=== PATIENT | male | born 1990 | race African-American/Black ===

== ENCOUNTER 2018-08-01 12:44 | Emergency (ER) | payer MEDICAID, OTHER ==
[~2018-08-01] VITALS: Ht 167.6 cm; Wt 66.7 kg
[2018-08-01 13:13] VITALS: BP 127/77
[2018-08-01] MEDS ORDERED: PANTOPRAZOLE 40 MG TAB PO ONE (13:15)
[2018-08-01 13:32] LABS: Basophils # (auto) 0 uL; Eosinophils # (auto) 0.1 uL; Hematocrit 51.4 % (41.0-53.0); Hemoglobin 17.7 g/dL (13.5-17.5); Mean Corpuscular Hemoglobin 30.2 pg (28.0-32.0); Nucleated Red Blood Cells % 0.2 %; Red Cell Distribution Width 13.5 % (11.8-14.3); White Blood Cell 3.6 10^3/uL (4.4-10.8)
[2018-08-01 13:34] LABS: Eosinophils % (auto) 2.6 % (0.0-7.0); Lymphocytes # (auto) 1.7 uL; Lymphocytes % (auto) 45.8 % (10.0-50.0); Mean Corpuscular Hgb Conc. 34.5 g/dL (32.0-36.0); Mean Corpuscular Volume 87.5 fL (80.0-100.0); Monocytes # (auto) 0.5 uL; Monocytes % (auto) 13.2 % (0.0-12.0); Neutrophils # (auto) 1.4 uL; Neutrophils % (auto) 37.4 % (37.0-80.0); Platelet Count (auto) 275 10^3/uL (140-450); Red Blood Cells 5.88 10^6/uL (4.5-5.90)
[2018-08-01 13:53] LABS: Albumin 4.1 g/dL (3.4-5.0); Calcium 9.1 mg/dL (8.5-10.1); Potassium 3.9 mmol/L (3.5-5.1)
[2018-08-01 13:55] LABS: BUN/Creatinine Ratio 6.1; Bilirubin, Total 1.1 mg/dL (0.2-1.0); Total Protein 8.6 g/dL (6.4-8.2)
[2018-08-01 15:18] LABS: Urine Bacteria NONE SEEN /hpf (None Seen); Urine Blood Negative /uL (Negative); Urine Specific Gravity 1.002 (1.001-1.035); Urine WBC 1 /hpf (0 - 3)
== END 2018-08-01 16:50 | disposition home or self-care (01) ==
LOC: ER 12:46
DX: K29.70 Gastritis, unspecified, without bleeding (principal); Z87.11 Personal history of peptic ulcer disease
CPT/HCPCS: 36415; 74176; 80053; 81001; 82150; 83690; 85025

== ENCOUNTER 2018-08-26 11:41 | Emergency (ER) | payer MEDICAID ==
[~2018-08-26] VITALS: Ht 167.6 cm; Wt 68.0 kg
[2018-08-26 12:59] VITALS: BP 124/90
== END 2018-08-26 13:22 | disposition home or self-care (01) ==
LOC: ER 11:43
DX: K25.9 Gastric ulcer, unspecified as acute or chronic, without hemorrhage or perforation (principal); Z76.0 Encounter for issue of repeat prescription

== ENCOUNTER 2023-05-04 12:53 | Emergency (ER) | payer SELFPAY ==
[~2023-05-04] VITALS: Ht 170.2 cm; Wt 65.7 kg
[2023-05-04 13:21] VITALS: BP 154/90; PULSE 89; RESP 18; TEMP 97.9; O2SAT 100
[2023-05-04] MEDS ORDERED: DexAMETHasone SOD PHOS 10MG/1ML VIAL INJ PO ONE (13:30)
[2023-05-04] MEDS ORDERED: cefTRIAXone SOD 1,000 MG VL IM ONE (13:30)
[2023-05-04] MEDS ORDERED: CEPH500T PO (13:33)
[2023-05-04] MEDS ORDERED: NABU-72 PO (13:33)
[2023-05-04] MEDS ORDERED: HYDR-4924 PO (13:33)
== END 2023-05-04 13:46 | disposition home or self-care (01) ==
LOC: ER 12:53
DX: S90.562A Insect bite (nonvenomous), left ankle, initial encounter (principal); L03.116 Cellulitis of left lower limb; Z79.899 Other long term (current) drug therapy; W57.XXXA Bitten or stung by nonvenomous insect and other nonvenomous arthropods, initial encounter; Y93.89 Activity, other specified; Y92.89 Other specified places as the place of occurrence of the external cause; Y99.8 Other external cause status
CPT/HCPCS: 96372; 99283; J0696; J1100

== ENCOUNTER 2023-07-08 17:07 | Emergency (ER) | payer MEDICAID ==
[~2023-07-08] VITALS: Ht 167.6 cm; Wt 62.6 kg
[~2023-07-08 17:07] MED LIST: CEPH500T PO; HYDR-4924 PO; NABU-72 PO
[2023-07-08 17:11] VITALS: BP 136/111; PULSE 121; RESP 18; O2SAT 95
[2023-07-08 18:25] LABS: Basophils # (auto) 0.1 10 ^3/uL (0-0.2); Basophils % (auto) 0.4 % (0.0-2.0); Eosinophils # (auto) 0.1 10 ^3/uL (0-0.8); Eosinophils % (auto) 0.4 % (0.0-7.0); Hematocrit 47.7 % (41.0-53.0); Hemoglobin 15.8 g/dL (13.5-17.5); Lymphocytes # (auto) 1.7 10 ^3/uL (0.4-5.4); Lymphocytes % (auto) 12.3 % (10.0-50.0); Mean Corpuscular Hemoglobin 29.5 pg (28.0-32.0); Mean Corpuscular Volume 89.2 fL (80.0-100.0); Monocytes # (auto) 1.3 10 ^3/uL (0-1.3); Monocytes % (auto) 9.9 % (0.0-12.0); Neutrophils # (auto) 10.5 10 ^3/uL (1.6-8.6); Nucleated Red Blood Cells % 0.4 %; Red Blood Cells 5.35 10^6/uL (4.5-5.90); Red Cell Distribution Width 13.9 % (11.8-14.3); White Blood Cell 13.6 10^3/uL (4.4-10.8)
[2023-07-08 18:38] LABS: Chloride 104 mmol/L (98-107); Potassium 4.4 mmol/L (3.5-5.1); Sodium 134 mmol/L (136-145)
[2023-07-08 18:39] LABS: Anion Gap 5 (5-15); Calcium 8.6 mg/dL (8.5-10.1); Carbon Dioxide 25 mmol/L (20-30)
[2023-07-08 18:44] LABS: BUN/Creatinine Ratio 6.8 (10.0-20.0); Blood Urea Nitrogen 12 mg/dL (9-23); Glucose 89 mg/dL (74-106)
[2023-07-08 19:30] LABS: Urine Bacteria FEW /hpf (None Seen); Urine Blood 1+ /uL (Negative); Urine Clarity HAZY (Clear); Urine Color Yellow (Yellow); Urine Mucus FEW (None Seen); Urine Protein, UAD 3+ (Negative); Urine Specific Gravity 1.023 (1.001-1.035); Urine Sperm PRESENT /hpf (None Seen); Urine WBC 614 /hpf (0 - 3); Urine pH 6.5 (5.0-8.0)
[2023-07-08] MEDS ORDERED: IBUP-1455 PO (20:00)
[2023-07-08] MEDS ORDERED: BACDST PO (20:00)
== END 2023-07-09 00:23 | disposition home or self-care (01) ==
LOC: ER 17:07
DX: N43.3 Hydrocele, unspecified (principal); Z79.899 Other long term (current) drug therapy
CPT/HCPCS: 36415; 76870; 80048; 81001; 85025

== ENCOUNTER 2023-08-04 20:30 | Inpatient (IN) | payer MEDICAID ==
[~2023-08-04] VITALS: Ht 167.6 cm; Wt 68.0 kg
[~2023-08-04 20:30] MED LIST changes: +BACDST PO; +IBUP-1455 PO
[2023-08-04 21:13] LABS: Basophils # (auto) 0 10 ^3/uL (0-0.2); Basophils % (auto) 0.6 % (0.0-2.0); Eosinophils # (auto) 0.1 10 ^3/uL (0-0.8); Eosinophils % (auto) 1.4 % (0.0-7.0); Hematocrit 50.6 % (41.0-53.0); Hemoglobin 16.9 g/dL (13.5-17.5); Lymphocytes % (auto) 31.3 % (10.0-50.0); Mean Corpuscular Hemoglobin 29.3 pg (28.0-32.0); Mean Corpuscular Hgb Conc. 33.4 g/dL (32.0-36.0); Mean Corpuscular Volume 87.9 fL (80.0-100.0); Monocytes # (auto) 0.5 10 ^3/uL (0-1.3); Monocytes % (auto) 7.1 % (0.0-12.0); Neutrophils # (auto) 3.8 10 ^3/uL (1.6-8.6); Neutrophils % (auto) 59.6 % (37.0-80.0); Nucleated Red Blood Cells % 0.3 %; Red Blood Cells 5.76 10^6/uL (4.5-5.90); Red Cell Distribution Width 14.5 % (11.8-14.3); White Blood Cell 6.4 10^3/uL (4.4-10.8)
[2023-08-04 21:30] LABS: Alanine Aminotransferase 75 U/L (7-40); Alkaline Phosphatase 101 U/L (46-116); Amylase 96 U/L (30-118); Anion Gap 7 (5-15); Aspartate Aminotransferase 59 U/L (13-40); BUN/Creatinine Ratio 7.6 (10.0-20.0); Blood Urea Nitrogen 14 mg/dL (9-23); Calcium 9.4 mg/dL (8.7-10.4); Carbon Dioxide 25 mmol/L (20-30); Chloride 107 mmol/L (98-107); Glucose 104 mg/dL (74-106); Lipase 26 U/L (12-53); Potassium 3.7 mmol/L (3.5-5.1); Sodium 139 mmol/L (136-145)
[2023-08-04 21:31] LABS: Albumin 3.8 g/dL (3.2-4.8); Bilirubin, Total 1.1 mg/dL (0.2-1.0); Total Protein 7.2 g/dL (5.7-8.2)
[2023-08-04] MEDS ORDERED: cloNIDine HCL 0.1 MG TAB PO ONE (22:15)
[2023-08-04] MEDS ORDERED: cefTRIAXone 2GM/50ML D5W 50 ML IV ONE (22:30)
[2023-08-04] MEDS: MORPHINE SULFATE 4 MG/ML SYR/VIAL IV ONE (22:48)
[2023-08-04] MEDS: ONDANSETRON HCL 4 MG/2 ML VIAL IV ONE (22:48)
[2023-08-04] MEDS: METOPROLOL TARTRATE 1MG/1ML-5ML VIAL IV ONE (22:49)
[2023-08-04] MEDS: SODIUM CHLORIDE 0.9% 1,000 ML IV ONE (22:49)
[2023-08-04] MEDS: ASPirin 325 MG TAB PO ONE (22:49)
[2023-08-04] MEDS: PANTOPRAZOLE 40 MG/10 ML VIAL INJ IV ONE (22:52)
[2023-08-04] MEDS: ALBUTEROL SULF 2.5 MG/0.5ML(0.5%) NEB SOLN NEB ONE (23:08)
[2023-08-04] MEDS: IPRATROPIUM BROM 0.5 MG/2.5ML INH SOL NEB ONE (23:08)
[2023-08-04] MEDS: IOHEXOL 350 MG/ML 100ML IJ ONE (23:20)
[2023-08-05] VITALS (7 sets, daily range): BP systolic 129–140; BP diastolic 82–100; PULSE 80–101; RESP 11–20; TEMP 97.7–98.3; O2SAT 95–100
[2023-08-05] MEDS: FUROSEMIDE 40 MG/4 ML VIAL IV ONE (00:37)
[2023-08-05] MEDS: ONDANSETRON HCL 4 MG/2 ML VIAL IV ONE (04:09)
[2023-08-05] MEDS ORDERED: diphenhdrAMINE HCL 50 MG/1 ML VL IV ONE (04:30)
[2023-08-05] MEDS ORDERED: HYDROmorphone HCL 2 MG/ML VL/or syr IV ONE (04:30)
[2023-08-05 04:51] LABS: Urine Bacteria NONE SEEN /hpf (None Seen); Urine Blood Negative /uL (Negative); Urine Clarity Clear (Clear); Urine Color Colorless (Yellow); Urine Protein, UAD 2+ (Negative); Urine Specific Gravity 1.027 (1.001-1.035); Urine Urobilinogen Normal (Negative); Urine WBC 2 /hpf (0 - 3)
[2023-08-05] MEDS ORDERED: NITROGLYCERIN 0.4 MG SL TAB SL PRN (05:00)
[2023-08-05] MEDS ORDERED: MORPHINE SULFATE INJ 2 MG/ml SYRG IV PRN (05:00)
[2023-08-05] MEDS ORDERED: ONDANSETRON HCL 4 MG/2 ML VIAL IV PRN (05:00)
[2023-08-05 05:48] LABS: Chloride 108 mmol/L (98-107); Potassium 3.8 mmol/L (3.5-5.1); Sodium 139 mmol/L (136-145)
[2023-08-05 05:49] LABS: Anion Gap 8 (5-15); Calcium 8.3 mg/dL (8.5-10.1); Carbon Dioxide 23 mmol/L (20-30)
[2023-08-05 05:54] LABS: BUN/Creatinine Ratio 7.9 (10.0-20.0); Blood Urea Nitrogen 14 mg/dL (9-23); Glucose 110 mg/dL (74-106); Triglycerides 88 mg/dL (< 150)
[2023-08-05 05:55] LABS: LDL Cholesterol 116 mg/dL (< 100)
[2023-08-05 05:56] LABS: Cholesterol 168 mg/dL (< 200); HDL Cholesterol 42 mg/dL (40-59)
[2023-08-05] MEDS: hydrALAZINE HCL 20 MG/ML VL IV SCH (06:14)
[2023-08-05] MEDS: ASPirin 81 mg TAB PO SCH (10:29)
[2023-08-05] MEDS: amLODIPine BESYLATE 5 MG TAB PO SCH (10:29)
[2023-08-05] MEDS: FUROSEMIDE 20 MG/2 ML VIAL IV SCH (10:29)
[2023-08-05 10:44] LABS: Magnesium 1.8 mg/dL (1.6-2.6)
[2023-08-05] MEDS ORDERED: hydrALAZINE HCL 20 MG/ML VL IV PRN (10:45)
[2023-08-05] MEDS ORDERED: INFLUENZA QUAD 2023-2024 0.5 ML SYRG IM ONE (12:00)
[2023-08-05 15:37] LABS: Amphetamine Screen, Urine Neg (NEGATIVE); Barbiturate Scree,Urine Neg (NEGATIVE); Benzodiazephine Screen, Urine Neg (NEGATIVE); Cocaine Screen, Urine Neg (NEGATIVE)
[2023-08-05 15:38] LABS: Cannabinoid Screen, Urine Neg (NEGATIVE); Opiate Scree,Urine Neg (NEGATIVE); Phencyclidine Screen, Urine Neg (NEGATIVE)
[2023-08-05] MEDS: FUROSEMIDE 20 MG TAB PO SCH (18:07)
[2023-08-05] MEDS: CARVEDILOL 3.125 MG TAB PO SCH (21:40)
[2023-08-06] VITALS (7 sets, daily range): BP systolic 104–143; BP diastolic 65–111; PULSE 86–100; RESP 15–18; TEMP 97.5–98.5; O2SAT 97–99
[2023-08-06] MEDS: MAALOX PLUS or MAALOX 30 ML PO ONE (01:24)
[2023-08-06] MEDS: HYDROcodone-ACET 5/325MG TAB PO PRN (01:25)
[2023-08-06 06:08] LABS: Basophils # (auto) 0.1 10 ^3/uL (0-0.2); Basophils % (auto) 0.7 % (0.0-2.0); Eosinophils # (auto) 0.1 10 ^3/uL (0-0.8); Eosinophils % (auto) 1.7 % (0.0-7.0); Hematocrit 43.5 % (41.0-53.0); Hemoglobin 14.7 g/dL (13.5-17.5); Lymphocytes # (auto) 1.1 10 ^3/uL (0.4-5.4); Lymphocytes % (auto) 14.2 % (10.0-50.0); Mean Corpuscular Hemoglobin 29.5 pg (28.0-32.0); Mean Corpuscular Hgb Conc. 33.9 g/dL (32.0-36.0); Mean Corpuscular Volume 86.9 fL (80.0-100.0); Monocytes # (auto) 0.5 10 ^3/uL (0-1.3); Neutrophils # (auto) 6.1 10 ^3/uL (1.6-8.6); Neutrophils % (auto) 77.4 % (37.0-80.0); Red Cell Distribution Width 14.7 % (11.8-14.3); White Blood Cell 7.8 10^3/uL (4.4-10.8)
[2023-08-06 06:19] LABS: Chloride 102 mmol/L (98-107); Potassium 3.3 mmol/L (3.5-5.1); Sodium 137 mmol/L (136-145)
[2023-08-06 06:20] LABS: Anion Gap 7 (5-15); Calcium 8.5 mg/dL (8.7-10.4); Carbon Dioxide 28 mmol/L (20-30)
[2023-08-06 06:25] LABS: BUN/Creatinine Ratio 12.6 (10.0-20.0); Glucose 98 mg/dL (74-106)
[2023-08-06 06:26] LABS: Magnesium 1.8 mg/dL (1.6-2.6)
[2023-08-06 06:31] LABS: Blood Urea Nitrogen 24 mg/dL (9-23)
[2023-08-06] MEDS: PANTOPRAZOLE 40 MG TAB PO SCH (09:31)
[2023-08-06] MEDS: EMPAGLIFLOZIN 10 MG TAB PO SCH (09:32)
[2023-08-06] MEDS: POTASSIUM EFFERVESENT TAB 25 MEQ PO ONE (09:45)
[2023-08-06] MEDS: MAGNESIUM OXIDE 400 MG TAB PO ONE (17:58)
[2023-08-06] MEDS: AMIODARONE HCL 200 MG TAB PO SCH (22:46)
[2023-08-07] VITALS (7 sets, daily range): BP systolic 114–142; BP diastolic 74–98; PULSE 72–89; RESP 16–18; TEMP 97.2–98.1; O2SAT 93–98
[2023-08-07 06:38] LABS: Chloride 102 mmol/L (98-107); Potassium 3.5 mmol/L (3.5-5.1); Sodium 137 mmol/L (136-145)
[2023-08-07 06:39] LABS: Anion Gap 5 (5-15); Calcium 8.6 mg/dL (8.7-10.4); Carbon Dioxide 30 mmol/L (20-30)
[2023-08-07 06:44] LABS: BUN/Creatinine Ratio 12.9 (10.0-20.0); Blood Urea Nitrogen 24 mg/dL (9-23); Glucose 95 mg/dL (74-106)
[2023-08-07] MEDS: FUROSEMIDE 20 MG TAB PO SCH (10:45)
[2023-08-07] MEDS ORDERED: POTA8TAB38 PO (10:53)
[2023-08-07] MEDS ORDERED: AMIO200T33 PO (10:53)
[2023-08-07] MEDS ORDERED: CAR3125T PO (10:53)
[2023-08-07] MEDS ORDERED: FUR20T PO (10:53)
[2023-08-07] MEDS ORDERED: ASPI-325 PO (10:53)
[2023-08-08 09:03] LABS: Hepatitis B Surface Antigen Negative (Negative)
[2023-08-08 09:24] LABS: Hepatitis C Antibody Negative (Negative)
== END 2023-08-07 17:25 | disposition home or self-care (01) | DRG 199 ==
LOC: ER 20:30 → TELE-CENTR 08-05 04:54 → TELE 08-05 04:54 → TELE-CENTR 08-05 11:40
PROVIDERS: ADMIT Nurse Practitioner; ATTEND Nurse Practitioner Acute Care
DX: I16.0 Hypertensive urgency (principal); I21.A1 Myocardial infarction type 2; I50.23 Acute on chronic systolic (congestive) heart failure; I42.0 Dilated cardiomyopathy; F12.10 Cannabis abuse, uncomplicated; K27.7 Chronic peptic ulcer, site unspecified, without hemorrhage or perforation; I47.20 Ventricular tachycardia, unspecified; E78.5 Hyperlipidemia, unspecified; K29.70 Gastritis, unspecified, without bleeding; N18.32 Chronic kidney disease, stage 3b; Z79.82 Long term (current) use of aspirin; Z90.49 Acquired absence of other specified parts of digestive tract; Z79.899 Other long term (current) drug therapy; F15.90 Other stimulant use, unspecified, uncomplicated
CPT/HCPCS: 36415; 71045; 71275; 76705; 78226; 80048; 80053; 80061; 80307; 81001; 82150; 83036; 83690; 83735; 83880; 84443; 84484; 85025; 85379; 86803; 87340; 93005; 93306; 94640; 96361; 96374; 96375; 96376; C9113; G0378; J2405

== ENCOUNTER 2024-01-08 15:23 | Inpatient (IN) | payer MEDICAID ==
[~2024-01-08] VITALS: Ht 170.2 cm; Wt 63.9 kg
[~2024-01-08 15:23] MED LIST changes: +AMIO200T33 PO; +ASPI-325 PO; +CARV-214 PO; +FUR20T PO; +POTA8TAB38 PO
[2024-01-08] MEDS: ASPirin 325 MG TAB PO ONE (16:14)
[2024-01-08 16:29] LABS: Basophils # (auto) 0.1 10 ^3/uL (0-0.2); Basophils % (auto) 0.8 % (0.0-2.0); Eosinophils # (auto) 0.5 10 ^3/uL (0-0.8); Eosinophils % (auto) 5.2 % (0.0-7.0); Hematocrit 46.3 % (41.0-53.0); Hemoglobin 16.6 g/dL (13.5-17.5); Lymphocytes # (auto) 1.3 10 ^3/uL (0.4-5.4); Lymphocytes % (auto) 12.8 % (10.0-50.0); Mean Corpuscular Hemoglobin 30.6 pg (28.0-32.0); Mean Corpuscular Hgb Conc. 35.9 g/dL (32.0-36.0); Mean Corpuscular Volume 85.2 fL (80.0-100.0); Monocytes # (auto) 0.6 10 ^3/uL (0-1.3); Monocytes % (auto) 6.2 % (0.0-12.0); Neutrophils # (auto) 7.6 10 ^3/uL (1.6-8.6); Nucleated Red Blood Cells % 0.1 %; Red Blood Cells 5.44 10^6/uL (4.5-5.90); Red Cell Distribution Width 14.1 % (11.8-14.3); White Blood Cell 10.2 10^3/uL (4.4-10.8)
[2024-01-08 16:38] LABS: Chloride 106 mmol/L (98-107); Potassium 3.6 mmol/L (3.5-5.1); Sodium 139 mmol/L (136-145)
[2024-01-08 16:39] LABS: Anion Gap 7 (5-15); Calcium 9.9 mg/dL (8.7-10.4); Carbon Dioxide 26 mmol/L (20-30)
[2024-01-08 16:44] LABS: BUN/Creatinine Ratio 13.9 (10.0-20.0); Blood Urea Nitrogen 23 mg/dL (9-23); Glucose 93 mg/dL (74-106)
[2024-01-08 17:49] LABS: Triglycerides 149 mg/dL (< 150)
[2024-01-08 17:50] LABS: LDL Cholesterol 135 mg/dL (< 100)
[2024-01-08 17:51] LABS: Cholesterol 207 mg/dL (< 200); HDL Cholesterol 50 mg/dL (40-59)
[2024-01-08] MEDS: ENOXAPARIN SOD 60 MG/0.6 ML SYRINGE SC SCH (18:51)
[2024-01-08 19:08] LABS: INR 1.02 (0.9-1.15); Prothrombin Time 10.8 sec (9.3-11.8)
[2024-01-08] MEDS: PANTOPRAZOLE 40 MG/10 ML VIAL INJ IV ONE (20:09)
[2024-01-08] MEDS: FUROSEMIDE 20 MG/2 ML VIAL IV ONE (20:10)
[2024-01-08 20:11] VITALS: PULSE 78; RESP 18; O2SAT 96
[2024-01-08] MEDS ORDERED: MORPHINE SULFATE INJ 2 MG/ml SYRG IV PRN (22:30)
[2024-01-08] MEDS ORDERED: NITROGLYCERIN 0.4 MG SL TAB SL PRN (22:30)
[2024-01-08 23:24] VITALS: BP 143/110; PULSE 84; RESP 16; TEMP 97.9; O2SAT 97
[2024-01-08] MEDS: CARVEDILOL 3.125 MG TAB PO SCH (23:29)
[2024-01-08] MEDS: ATORVASTATIN 20 MG TAB PO SCH (23:29)
[2024-01-08] MEDS: AMIODARONE HCL 200 MG TAB PO SCH (23:30)
[2024-01-09] MEDS ORDERED: ASPirin-EC 81 mg tab PO SCH (10:00)
[2024-01-09] MEDS ORDERED: PANTOPRAZOLE 40 MG/10 ML VIAL INJ IV SCH (10:00)
[2024-01-09] MEDS ORDERED: FUROSEMIDE 20 MG/2 ML VIAL IV SCH (10:00)
[2024-01-09] MEDS ORDERED: POTASSIUM CHLORIDE 8 MEQ TAB PO SCH (10:00)
[2024-01-09] MEDS ORDERED: ISOS1TAB28 PO (16:17)
[2024-01-09] MEDS ORDERED: AMIO200T33 PO (16:17)
[2024-01-09] MEDS ORDERED: EMPA1TAB PO (16:17)
[2024-01-09] MEDS ORDERED: HYDR25TA88 PO (16:17)
== END 2024-01-09 00:08 | disposition left against medical advice (07) | DRG 194 ==
LOC: ER 15:23 → TELE 22:18
PROVIDERS: ADMIT Nurse Practitioner; ATTEND Internal Medicine Geriatric Medicine
DX: I50.21 Acute systolic (congestive) heart failure (principal); E78.5 Hyperlipidemia, unspecified; N18.30 Chronic kidney disease, stage 3 unspecified; Z53.29 Procedure and treatment not carried out because of patient's decision for other reasons; Z90.49 Acquired absence of other specified parts of digestive tract; Z87.11 Personal history of peptic ulcer disease
CPT/HCPCS: 36415; 71046; 80048; 80061; 83036; 83735; 83880; 84484; 85025; 85610; 93005; 96374; 96375; G0378; J2470

== ENCOUNTER 2024-04-10 16:58 | Emergency (ER) | payer MEDICAID ==
[~2024-04-10] VITALS: Ht 170.2 cm; Wt 64.9 kg
[~2024-04-10 16:58] MED LIST changes: -BACDST PO; -CEPH500T PO; +EMPA1TAB PO; -FUR20T PO; +FURO20TA4 PO; +HYDR25TA88 PO; -IBUP-1455 PO; +ISOS1TAB28 PO; -NABU-72 PO
--- NOTE | 2024-04-10 17:21 | ED.PDOC ---
SOB-HPI HPI Comments 33 year old male presents to the ED with chief complaint of SOB. Patient reports since returning home from a recent cruise to [place], he has begun to experience SOB with associated symptoms of cough, chills, and chest pain with deep breaths. Patient relays that he is currently taking Carvedilol for recent diagnosis of HTN. Patient denies any N/V/D, fever, dizziness, or headache. Patient was hypertensive at arrival. Chief Complaint: Flu like Time Seen by MD: 17:17 Primary Care Provider: NONE Reviewed notes: Nurses Notes, Medications, Allergies Information Source: Patient Mode of Arrival: Ambulatory Severity: Moderate Timing: Days Duration: Since onset Context: At Rest PE Risk Factors: None History of: None Prehospital treatment: None Modifying Factors: Nothing Associated Signs and Symptoms: Cough, Chest Pain Quality: Pressure Radiation: No Radiation Location: Substernal If cough with SOB: Non-Productive Past Medical History PAST MEDICAL HISTORY: CHF, HTN, PUD Surgical History: Appendectomy Family History Family History: Reviewed,noncontributory to illness, Unknown Social History Smoker: Cigarettes Alcohol: Denies ETOH Use Drugs: Marijuana Lives In: Home Constitutional: reports: chills, weakness; denies: diaphoresis, fatigue, fever, malaise, sweats, others EENTM: denies: blurred vision, double vision, ear bleeding, ear discharge, ear drainage, ear pain, ear ringing, eye pain, eye redness, hearing loss, mouth pain, mouth swelling, nasal discharge, nose bleeding, nose congestion, nose pain, photophobia, tearing, throat pain, throat swelling, voice changes, others Respiratory: reports: cough, shortness of breath; denies: hemoptysis, orthopnea, SOB at rest, SOB with excertion, stridor, wheezing, others Cardiovascular: reports: chest pain; denies: dizzy spells, diaphoresis, Dyspnea on exertion, edema, irregular heart beat, left arm pain, lightheadedness, palpitations, PND, syncope, others Gastrointestinal: denies: abdomen distended, abdominal pain, blood streaked bowels, constipated, diarrhea, dysphagia, difficulty swallowing, hematemesis, melena, nausea, poor appetite, poor fluid intake, rectal bleeding, rectal pain, vomiting, others Genitourinary: denies: burning, dysuria, flank pain, frequency, hematuria, incontinence, penile discharge, penile sore, pain, testicle pain, testicle sw elling, urgency, others Neurological: denies: dizziness, fainting, headache, left sided numbness, left sided weakness, numbness, paresthesia, pre-existing deficit, right sided numbness, right sided weakness, seizure, speech problems, tingling, tremors, weakness, others Musculoskeletal: denies: back pain, gout, joint pain, joint swelling, muscle pain, muscle stiffness, neck pain, others Integumetry: denies: bruises, change in color, change in hair/nails, dryness, laceration, lesions, lumps, rash, wounds, others Allergic/Immunocompromised: denies: Difficulty Healing, Frequent Infections, Hives, Itching, others Hematologic/Lymphatic: denies: anemia, blood clots, easy bleeding, easy bruising, swollen glands, others Endocrine: denies: excessive hunger, excessive sweating, excessive thirst, excessive urination, flushing, intolerance to cold, intolerance to heat, unexplained weight gain, unexplained weight loss, others Psychiatric: denies: anxiety, bipolar disorder, depression, hopeless, panic disorder, schizophrenia, sleepless, suicidal, others All Other Systems: Reviewed and Negative Physical Exam General Appearance: Mild Distress (Patient presents as a mildly ill 33-year-old male.), Normal HEENT: Normal ENT Inspection, PERRL/EOMI Neck: Full Range of Motion, Non-Tender, Normal, Normal Inspection Respiratory: Chest Non-Tender, Lungs Clear, No Accessory Muscle Use, No Resp iratory Distress, Normal Breath Sounds, Other (Unremarkable auscultation bilateral lung simon.) Cardiovascular: No Edema, No JVD, No Murmur, No Gallop, Normal Peripheral Pulses, Regular Rate/Rhythm Breast Exam: Deferred Gastrointestinal: No Organomegaly, Non Tender, No Pulsatile Mass, Normal Bowel Sounds, Soft Genitalia: Deferred Pelvic: Deferred Rectal: Deferred Extremities: No calf tenderness, Normal capillary refill, Normal inspection, Normal range of motion, Non-tender, No pedal edema Musculoskeletal : Apperance: Normal Neurologic: Alert, chair springer II-XII nml as Tested, No Motor Deficits, Normal Affect, Normal Mood, No Sensory Deficits Cerebellar Function: Normal Reflexes: Normal Skin: Dry, Normal Color, Warm Lymphatic: No Adenopathy Was a procedure done? Was a procedure done?: No Differential Dx Differential Diagnosis: Bronchitis, Pneumonia, URI, Other (Influenza a/B, COVID-19) X-Ray, Labs, Meds, VS Vital Signs Date Time Temp Pulse Resp B/P (MAP) Pulse Ox O2 Delivery O2 Flow Rate FiO2 04/10/24 19:27 76 18 96 Room Air* 0 21 04/10/24 19:27 97.6 76 18 122/98 (106) 96 97.6 04/10/24 18:11 98.1 77 17 152/90 (110) 96 98.1 04/10/24 18:11 77 17 96 Room Air 04/10/24 18:02 16 97 Room Air* 0 21 04/10/24 17:16 98.0 75 20 176/125 (142) 97 Lab Test 04/10/24 19:27 04/10/24 18:22 Range/Units Influenza Type A Antigen Negative Negative Influenza Type B Antigen Positive Negative SARS-CoV-2 Antigen (Rapid) Negative NEGATIVE Current Medications Medications (Trade) Dose Ordered Sig/Connie Route Start Time Stop Time Status Last Admin Albuterol (Ventolin Medneb) 2.5 mg ONCE ONCE NEB 04/10/24 17:30 04/10/24 17:31 DC 04/10/24 18:02 Ipratropium Carroll (Atrovent Medneb) 0.5 mg ONCE ONCE NEB 04/10/24 17:30 04/10/24 17:31 DC 04/10/24 18:02 Dexamethasone Sodium Phosphate (Decadron Injection) 10 mg ONCE ONCE IM 04/10/24 17:30 04/10/24 17:31 DC 04/10/24 18:11 X-Ray, Labs, Meds, VS Comment All studies performed in the ED today were evaluated by me personally. Imaging studies unremarkable for any acute pulmonary process. Swabs studies were remarkable for a positive influenza B finding. Patient will be sent home with medication and advised to practice good hydration and healthy nutrition throughout illness event. Time of 1ST Reevaluation: 20:19 Reevaluation 1ST: Improved Consultation: PCP Patient Education/Counseling: Diagnosis, Treatment, Prognosis Family Education/Counseling: Diagnosis, Treatment, No Family Present Departure 1 Departure Time of Disposition: 20:19 Impression: Primary Impression: Influenza B Disposition: HOME / SELF CARE / HOMELESS Condition: Stable Additional Instructions: Advised patient utilize medication as directed as well as additional medication as needed. Patient should practice good hydration and healthy nutrition throughout illness event. e-Prescriptions Benzonatate (Benzonatate) 100 Mg Cap 1 CAP PO Q8HP PRN, #20 CAP Prov: ROSARIO AYALA PAC 04/10/24 Acetaminophen (Acetaminophen) 500 Mg Tab 500 MG PO Q4HP PRN, #30 TAB Prov: ROSARIO AYALA PAC 04/10/24 Oseltamivir Phosphate (Tamiflu) 75 Mg Cap 75 MG PO BID for 5 Days, #10 CAP Prov: ROSARIO AYALA PAC 04/10/24 Discharged With: Self, Friend Critical Care Note Critical Care Time?: No Stability Stability form required: No Heart Score Heart Score: Heart Score Response (Comments) Value History N/A 0 EKG N/A 0 Age N/A 0 Risk Factors N/A 0 Troponin N/A 0 Total 0 I personally scribed for ROSARIO AYALA PAC ([email or web address]) on 04/10/24 at 17:21. Electronically submitted by Pedro Hernandez ([email or web address]). ROSARIO AYALA PAC Apr 10, 2024 17:21
--- NOTE | 2024-04-10 17:47 | DVH ---
EXAMINATION: PA and lateral chest radiographs CLINICAL HISTORY: Shortness a breath COMPARISON: XY CHEST TWO VIEWS ROUTINE on DOS: 01/08/24 FINDINGS: No dominant consolidation. The costophrenic angles appear clear. No sizable pleural effusions or pne umothorax identified. The cardiomediastinal silhouette appears within normal limits. IMPRESSION: No acute cardiopulmonary findings.
[2024-04-10] MEDS: ALBUTEROL SULF 2.5 MG/0.5ML(0.5%) NEB SOLN NEB ONE (18:02)
[2024-04-10] MEDS: IPRATROPIUM BROM 0.5 MG/2.5ML INH SOL NEB ONE (18:02)
[2024-04-10] MEDS: DexAMETHasone SOD PHOS 10MG/1ML VIAL INJ IM ONE (18:11)
[2024-04-10 19:27] VITALS: BP 122/98; PULSE 76; RESP 18; TEMP 97.6; O2SAT 96
[2024-04-10 19:33] LABS: COVID19 ANTIGEN SOFIA FIA NEGATIVE (NEGATIVE)
[2024-04-10 20:11] LABS: Rapid Influenza A Negative (Negative)
[2024-04-10 20:12] LABS: Rapid Influenza B Positive (Negative)
[2024-04-10] MEDS ORDERED: ACET500T58 PO (20:20)
[2024-04-10] MEDS ORDERED: BENZ100C97 PO (20:20)
[2024-04-10] MEDS ORDERED: TAMIFLU PO (20:20)
== END 2024-04-10 20:58 | disposition home or self-care (01) ==
LOC: ER 16:58
DX: J10.1 Influenza due to other identified influenza virus with other respiratory manifestations (principal); I11.0 Hypertensive heart disease with heart failure; I50.9 Heart failure, unspecified; F12.10 Cannabis abuse, uncomplicated; F17.210 Nicotine dependence, cigarettes, uncomplicated; Z87.11 Personal history of peptic ulcer disease; Z90.49 Acquired absence of other specified parts of digestive tract; Z20.822 Contact with and (suspected) exposure to COVID-19
CPT/HCPCS: 36415; 71046; 87426; 87804; 94640; 96372; 99284; J1100

== ENCOUNTER 2024-05-19 22:57 | Emergency (ER) | payer MEDICAID ==
[~2024-05-19] VITALS: Ht 170.2 cm; Wt 65.3 kg
[~2024-05-19 22:57] MED LIST changes: +ACET500T58 PO; +BENZ100C97 PO; +TAMIFLU PO
[2024-05-19 23:20] VITALS: BP 185/129; PULSE 63; RESP 16; O2SAT 98
--- NOTE | 2024-05-19 23:46 | ED.PDOC ---
Eye-HPI HPI Comments 33-year-old male complaining of bleeding to his right upper molar. Patient states he went to the dentist at 10:00 a.m. today and had a tooth extracted. States since then he has been having bleeding. Soaking through the gauze. Patient denies any pain. Nothing makes it better,. Has been replacing the packing frequently. Denies any use of blood thinners. Chief Complaint: Tooth Pain Time Seen by MD: 23:10 Primary Care Provider: KISHA Reviewed Notes: Nurses Notes Allergies: Coded Allergies: NO KNOWN ALLERGIES (Unverified , 08/01/18) Home Meds Active Scripts Benzonatate (Benzonatate) 100 Mg Cap, 1 CAP PO Q8HP PRN, #20 CAP Prov:ROSARIO AYALA PAC 04/10/24 Acetaminophen (Acetaminophen) 500 Mg Tab, 500 MG PO Q4HP PRN, #30 TAB Prov:ROSARIO AYALA PAC 04/10/24 Oseltamivir Phosphate (Tamiflu) 75 Mg Cap, 75 MG PO BID for 5 Days, #10 CAP Prov:ROSARIO AYALA PAC 04/10/24 Potassium Chloride (Klor-Con 8) 8 Meq Tab, 8 MEQ PO DAILY for 60 Days, #60 TAB Prov:SALFABRICIO ESCUDERO CORDUROY BRUSHER OPERATOR 08/07/23 Aspirin (Aspirin Low Dose) 81 Mg Tab, 81 MG PO DAILY for 60 Days, #60 TAB Prov:SALNOA ESCUDEROPH CORDUROY BRUSHER OPERATOR 08/07/23 Furosemide (Furosemide) 20 Mg Tab, 20 MG PO DAILY for 60 Days, #60 TAB Prov:SALFABRICIO ESCUDERO CORDUROY BRUSHER OPERATOR 24 Carvedilol (COREG) 3.125 Mg Tab, 3.125 MG PO Q12HR for 60 Days, #120 TAB Prov:FABRICIO LLANOS CORDUROY BRUSHER OPERATOR 08/07/23 Hydroxyzine HCl (Hydroxyzine Hydrochloride) 25 Mg Tab, 25 MG PO Q6HPRN PRN, #30 TAB Prov:MCKAY CESPEDES SUBEDITOR 05/04/23 Reported Medications Amiodarone Hcl (Amiodarone Hcl) 200 Mg Tab, 200 MG PO DAILY, TAB 01/09/24 Hydralazine Hcl (Hydralazine Hcl) 25 Mg Tab, 25 MG PO BID, MG 01/09/24 Empagliflozin (Jardiance) 10 Mg Tab, 10 MG PO DAILY, TAB 01/09/24 Isosorbide Mononitrate (Isosorbide Mononitrate Er) 30 Mg Tab, 30 MG PO DAILY, TAB 01/09/24 Information Source: Patient Mode of Arrival: Ambulatory Past Medical History PAST MEDICAL HISTORY: CHF, HTN, PUD Surgical History: Appendectomy Family History Family History: Reviewed,noncontributory to illness, Unknown Social History Smoker: Cigarettes Alcohol: Denies ETOH Use Drugs: Marijuana Lives In: Home Constitutional: denies: chills, diaphoresis, fatigue, fever, malaise, sweats, weakness, others EENTM: denies: blurred vision, double vision, ear bleeding, ear discharge, ear drainage, ear pain, ear ringing, eye pain, eye redness, hearing loss, mouth pain, mouth swelling, nasal discharge, nose bleeding, nose congestion, nose pain, photophobia, tearing, throat pain, throat swelling, voice changes, others Respiratory: denies: cough, hemoptysis, orthopnea, SOB at rest, shortness of breath, SOB with excertion, stridor, wheezing, others Cardiovascular: denies: chest pain, dizzy spells, diaphoresis, Dyspnea on exertion, edema, irregular heart beat, left arm pain, lightheadedness, palpitations, PND, syncope, others Gastrointestinal: denies: abdomen distended, abdominal pain, blood streaked bowels, constipated, diarrhea, dysphagia, difficulty swallowing, hematemesis, melena, nausea, poor appetite, poor fluid intake, rectal bleeding, rectal pain, vomiting, others Genitourinary: denies: burning, dysuria, flank pain, frequency, hematuria, incontinence, penile discharge, penile sore, pain, testicle pain, testicle sw elling, urgency, others Neurological: denies: dizziness, fainting, headache, left sided numbness, left sided weakness, numbness, paresthesia, pre-existing deficit, right sided numbness, right sided weakness, seizure, speech problems, tingling, tremors, weakness, others Musculoskeletal: denies: back pain, gout, joint pain, joint swelling, muscle pain, muscle stiffness, neck pain, others Allergic/Immunocompromised: denies: Difficulty Healing, Frequent Infections, Hives, Itching, others Hematologic/Lymphatic: denies: anemia, blood clots, easy bleeding, easy bruising, swollen glands, others Physical Exam General Appearance: No Apparent Distress, Normal HEENT: Normal ENT Inspection, Pharynx Normal, TMs Normal, Other (Bleeding noted at tooth 1. ) Neck: Full Range of Motion, Non-Tender, Normal, Normal Inspection Respiratory: Chest Non-Tender, Lungs Clear, No Accessory Muscle Use, No Respiratory Distress, Normal Breath Sounds Cardiovascular: No Edema, No JVD, No Murmur, No Gallop, Normal Peripheral Pulses, Regular Rate/Rhythm Breast Exam: Deferred Gastrointestinal: No Organomegaly, Non Tender, No Pulsatile Mass, Normal Bowel Sounds, Soft Genitalia: Deferred Pelvic: Deferred Rectal: Deferred Extremities: No calf tenderness, Normal capillary refill, Normal inspection, Normal range of motion, Non-tender, No pedal edema Musculoskeletal : Apperance: Normal Neurologic: Alert, gambreler helper II-XII nml as Tested, No Motor Deficits, Normal Affect, Normal Mood, No Sensory Deficits Cerebellar Function: Normal Reflexes: Normal Skin: Dry, Normal Color, Warm Lymphatic: No Adenopathy Was a procedure done? Was a procedure done?: No EENT DIFF Eye: N/A Mouth: N/A Sore Throat: N/A X-Ray, Labs, Meds, VS Vital Signs Date Time Temp Pulse Resp B/P (MAP) Pulse Ox O2 Delivery O2 Flow Rate FiO2 05/19/24 23:20 97.2 63 16 185/129 (147) 98 X-Ray, Labs, Meds, VS Comment Tooth 1. Region was packed using Surgicel. Patient advised to keep pressure through the morning. Advised to follow up with dentist in the morning. Time of 1ST Reevaluation: 23:46 Reevaluation 1ST: Improved Patient Education/Counseling: Diagnosis, Treatment, Need For Follow Up (Follow up with the oral specialist tomorrow.) Family Education/Counseling: Diagnosis, Treatment Departure 1 Departure Time of Disposition: 23:45 Impression: Primary Impression: Hemorrhagic complications of dental implant placement Disposition: 01 HOME / SELF CARE / HOMELESS Condition: Fair Discharged With: Self Critical Care Note Critical Care Time?: No Stability Stability form required: No Heart Score Heart Score: Heart Score Response (Comments) Value History N/A 0 EKG N/A 0 Age N/A 0 Risk Factors N/A 0 Troponin N/A 0 Total 0 GENE ZIMMERMAN May 19, 2024 23:46
== END 2024-05-20 02:19 | disposition home or self-care (01) ==
LOC: ER 22:57
DX: K08.89 Other specified disorders of teeth and supporting structures (principal); I11.0 Hypertensive heart disease with heart failure; I50.9 Heart failure, unspecified; F17.210 Nicotine dependence, cigarettes, uncomplicated; Z79.82 Long term (current) use of aspirin; Z79.84 Long term (current) use of oral hypoglycemic drugs; Z79.899 Other long term (current) drug therapy; Z90.49 Acquired absence of other specified parts of digestive tract

== ENCOUNTER 2024-07-06 08:51 | Emergency (ER) | payer MEDICAID ==
[~2024-07-06] VITALS: Ht 170.2 cm; Wt 67.2 kg
--- NOTE | 2024-07-06 09:02 | ECG ---
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
--- NOTE | 2024-07-06 09:23 | DVH ---
CHEST RADIOGRAPH Indication: chest pain Technique: Frontal and lateral view of the chest was obtained Comparison: XY CHEST TWO VIEWS ROUTINE on DOS: 04/10/24, XY CHEST TWO VIEWS ROUTINE on DOS: 01/08/24 FINDINGS: Lines and Tubes: None Lungs: Clear Pleura: No effusion. No pneumothorax. Cardiomediastinal contours: Unremarkable Bones: Unremarkable IMPRESSION: No evidence of acute disease.
[2024-07-06 09:28] LABS: Basophils # (auto) 0 10 ^3/uL (0-0.2); Basophils % (auto) 0.7 % (0.0-2.0); Eosinophils # (auto) 0.3 10 ^3/uL (0-0.8); Eosinophils % (auto) 6.5 % (0.0-7.0); Hematocrit 47.6 % (41.0-53.0); Hemoglobin 16.7 g/dL (13.5-17.5); Lymphocytes # (auto) 1.6 10 ^3/uL (0.4-5.4); Lymphocytes % (auto) 37.7 % (10.0-50.0); Mean Corpuscular Hemoglobin 30.4 pg (28.0-32.0); Mean Corpuscular Hgb Conc. 35.1 g/dL (32.0-36.0); Mean Corpuscular Volume 86.8 fL (80.0-100.0); Monocytes # (auto) 0.4 10 ^3/uL (0-1.3); Monocytes % (auto) 10.4 % (0.0-12.0); Neutrophils # (auto) 1.9 10 ^3/uL (1.6-8.6); Neutrophils % (auto) 44.7 % (37.0-80.0); Nucleated Red Blood Cells % 0.4 %; Platelet Count (auto) 299 10^3/uL (140-450); Red Blood Cells 5.49 10^6/uL (4.5-5.90); Red Cell Distribution Width 13.3 % (11.8-14.3); White Blood Cell 4.2 10^3/uL (4.4-10.8)
[2024-07-06 09:41] LABS: Chloride 102 mmol/L (98-107); Potassium 3.7 mmol/L (3.5-5.1)
[2024-07-06 09:42] LABS: Anion Gap 7 (5-15); Calcium 9.2 mg/dL (8.7-10.4); Carbon Dioxide 27 mmol/L (20-31)
[2024-07-06 09:47] LABS: BUN/Creatinine Ratio 10.8 (10.0-20.0); Blood Urea Nitrogen 22 mg/dL (9-23)
[2024-07-06 09:51] LABS: Glucose 139 mg/dL (74-106); Sodium 136 mmol/L (136-145)
--- NOTE | 2024-07-06 11:32 | ED.PDOC ---
History of Present Illness HPI Comments 34M with congestive heart failure and hypertension presents with 1 day of worsening shortness of breath and bilateral achy 6/10 chest pain that radiates down his left arm. Patient reports this feels similar to her problems in the past. He denies any fever chills nausea vomiting or diarrhea. Chief Complaint: Chest Pain Time Seen by MD: 08:58 Primary Care Provider: KISHA Allergies: Coded Allergies: NO KNOWN ALLERGIES (Unverified , 08/01/18) Home Meds Active Scripts Benzonatate (Benzonatate) 100 Mg Cap, 1 CAP PO Q8HP PRN, #20 CAP Prov:ROSARIO AYALA PAC 04/10/24 Acetaminophen (Acetaminophen) 500 Mg Tab, 500 MG PO Q4HP PRN, #30 TAB Prov:ROSARIO AYALA PAC 04/10/24 Oseltamivir Phosphate (Tamiflu) 75 Mg Cap, 75 MG PO BID for 5 Days, #10 CAP Prov:ROSARIO AYALA PAC 04/10/24 Potassium Chloride (Klor-Con 8) 8 Meq Tab, 8 MEQ PO DAILY for 60 Days, #60 TAB Prov:FABRICIO LLANOS EDGE INKER 08/07/23 Aspirin (Aspirin Low Dose) 81 Mg Tab, 81 MG PO DAILY for 60 Days, #60 TAB Prov:SALFABRICIO ESCUDERO EDGE INKER 24 Furosemide (Furosemide) 20 Mg Tab, 20 MG PO DAILY for 60 Days, #60 TAB Prov:FABRICIO LLANOS EDGE INKER 24 Carvedilol (COREG) 3.125 Mg Tab, 3.125 MG PO Q12HR for 60 Days, #120 TAB Prov:FABRICIO LLANOS EDGE INKER 08/07/23 Hydroxyzine HCl (Hydroxyzine Hydrochloride) 25 Mg Tab, 25 MG PO Q6HPRN PRN, #30 TAB Prov:MCKAY CESPEDES FRONT END MECHANIC 05/04/23 Reported Medications Amiodarone Hcl (Amiodarone Hcl) 200 Mg Tab, 200 MG PO DAILY, TAB 01/09/24 Hydralazine Hcl (Hydralazine Hcl) 25 Mg Tab, 25 MG PO BID, MG 01/09/24 Empagliflozin (Jardiance) 10 Mg Tab, 10 MG PO DAILY, TAB 01/09/24 Isosorbide Mononitrate (Isosorbide Mononitrate Er) 30 Mg Tab, 30 MG PO DAILY, TAB 01/09/24 Information Source: Patient Mode of Arrival: Ambulatory Past Medical History PAST MEDICAL HISTORY: CHF, HTN, PUD Surgical History: Appendectomy Family History Family History: Reviewed,noncontributory to illness, Unknown Social History Smoker: Cigarettes Alcohol: Denies ETOH Use Drugs: Marijuana Lives In: Home All Other Systems: Reviewed and Negative Physical Exam General Appearance: Normal HEENT: Normal ENT Inspection Neck: Normal Inspection Respiratory: Other (Crackles bilaterally) Cardiovascular: Tachycardia Breast Exam: Deferred Gastrointestinal: No Organomegaly, Non Tender, No Pulsatile Mass, Normal Bowel Sounds, Soft Genitalia: Deferred Pelvic: Deferred Rectal: Deferred Extremities: No calf tenderness, Normal capillary refill, Normal inspection, Normal range of motion, Non-tender Neurologic: No Motor Deficits Cerebellar Function: NOT DONE Reflexes: NOT DONE Skin: Dry, Normal Color, Warm Lymphatic: NOT DONE Was a procedure done? Was a procedure done?: No Differential Dx Considerations may include: Viral syndrome, ACS, CHF exacerbation X-Ray, Labs, Meds, VS Vital Signs Date Time Temp Pulse Resp B/P (MAP) Pulse Ox O2 Delivery O2 Flow Rate FiO2 07/06/24 11:13 76 16 139/92 (108) 96 07/06/24 09:00 97.6 97 17 149/132 (138) 96 07/06/24 08:59 97 07/06/24 08:59 94 Lab Test 07/06/24 09:56 07/06/24 09:00 Range/Units Troponin I High Sensitivity 15 14 </=54 ng/L White Blood Count 4.2 L 4.4-10.8 10^3/uL Red Blood Count 5.49 4.5-5.90 10^6/uL Hemoglobin 16.7 13.5-17.5 g/dL Hematocrit 47.6 41.0-53.0 % Mean Corpuscular Volume 86.8 80.0-100.0 fL Mean Corpuscular Hemoglobin 30.4 28.0-32.0 pg Mean Corpuscular Hemoglobin Concent 35.1 32.0-36.0 g/dL Red Cell Distribution Width 13.3 11.8-14.3 % Platelet Count 299 140-450 10^3/uL Mean Platelet Volume 7.2 6.9-10.8 fL Neutrophils (%) (Auto) 44.7 37.0-80.0 % Lymphocytes (%) (Auto) 37.7 10.0-50.0 % Monocytes (%) (Auto) 10.4 0.0-12.0 % Eosinophils (%) (Auto) 6.5 0.0-7.0 % Basophils (%) (Auto) 0.7 0.0-2.0 % Neutrophils # (Auto) 1.9 1.6-8.6 10 ^3/uL Lymphocytes # (Auto) 1.6 0.4-5.4 10 ^3/uL Monocytes # (Auto) 0.4 0-1.3 10 ^3/uL Eosinophils # (Auto) 0.3 0-0.8 10 ^3/uL Basophils # (Auto) 0 0-0.2 10 ^3/uL Nucleated Red Blood Cells 0.4 % Sodium Level 136 136-145 mmol/L Potassium Level 3.7 3.5-5.1 mmol/L Chloride Level 102 98-107 mmol/L Carbon Dioxide Level 27 20-31 mmol/L Anion Gap 7 5-15 Blood Urea Nitrogen 22 9-23 mg/dL Creatinine 2.04 H 0.700-1.30 mg/dL Glomerular Filtration Rate Calc 44 >90 mL/min BUN/Creatinine Ratio 10.8 10.0-20.0 Serum Glucose 139 H 74-106 mg/dL Calcium Level 9.2 8.7-10.4 mg/dL B-Type Natriuretic Peptide 4.97 0-100 pg/mL Time of 1ST Reevaluation: 11:30 Reevaluation 1ST: Improved Patient Education/Counseling: Diagnosis, Treatment Family Education/Counseling: No Family Present Departure 1 Departure Time of Disposition: 11:31 (Patient presented with chest pain that was concerning for possible STEMI, ACS, PE, Pneumonia, Muscle Strain, COPD, Dissection. Data: 1. I ordered and reviewed the result of at least 3 labs including a CBC, BMP, and Troponin. 2. I independently interpreted the following tests: EKG which shows sinus arrhythmia and Chest X-ray which shows pulmonary vascular congestion.Risk:This patient has a high risk of morbidity due to further diagnostic testing or treatment and may suffer from an acute cardiac or respiratory disorder. Workup reveals concern for ACS and patient should be admitted for further workup and possible expert consultation. ) Impression: Primary Impression: Acute chest pain Additional Impression: Acute on chronic heart failure with reduced ejection fraction and diastolic dysfunction Disposition: ADMITTED INPATIENT Admit to: Med Surg Condition: Serious Critical Care Note Critical Care Time?: Yes Critical care comment: Acute chest pain Authorized and Performed by: Re Mathias MD Total critical care time: Approximately 38 minutes Due to a high probability of clinically significant, life threatening deterioration, the patient required my highest level of preparedness to intervene emergently and I personally spent this critical care time directly and personally managing the patient. This critical care time included obtaining a history; examining the patient; pulse oximetry; ordering and review of studies; arranging urgent treatment with development of a management plan; evaluation of patient's response to treatment; frequent reassessment; and, discussions with other providers. This critical care time was performed to assess and manage the high probability of imminent, life-threatening deterioration that could result in multi-organ failure. It was exclusive of separately billable procedures and treating other patients and teaching time. Please see my other sections and the rest of the note for further information on patient assessment and treatment. Stability Stability form required: No Heart Score Heart Score: Heart Score Response (Comments) Value History Moderate Suspicious 1 EKG Repolarization Disturb 1 Age <45 0 Risk Factors >3 or Hx ASHD 2 Troponin 1-2 x's Normal limit 1 Total 5 RE MATHIAS MD Jul 06, 2024 11:32
[2024-07-06 13:55] VITALS: BP 127/71; PULSE 94; RESP 16; TEMP 97.9; O2SAT 98
== END 2024-07-06 16:59 | disposition left against medical advice (07) ==
LOC: ER 08:51
DX: I11.0 Hypertensive heart disease with heart failure (principal); I50.33 Acute on chronic diastolic (congestive) heart failure; R07.89 Other chest pain; F17.210 Nicotine dependence, cigarettes, uncomplicated; Z90.49 Acquired absence of other specified parts of digestive tract
CPT/HCPCS: 36415; 71046; 80048; 83880; 84484; 85025; 93005; 99291

== ENCOUNTER 2024-09-02 10:32 | Inpatient (IN) | payer MEDICAID ==
[~2024-09-02] VITALS: Ht 167.6 cm; Wt 66.3 kg
--- NOTE | 2024-09-02 10:57 | ED.PDOC ---
HPI Comments HPI: 34 y/o M, presents to the ED for CC of chest pain. Patient states, he has been experiencing substernal chest pain that radiates to his left arm x1day. Patient describes, pain to be tight and pressure like in nature. Patient denies shortness of breath, dizziness, fatigue, nausea, or vomiting. No other symptoms or modifying factors present at this time. Patient states compliance with all his blood pressure medications. VITALS: Temp: 97.6 BP: 191/131 HR:54 RR: 20 SPO2: 98% Past medical history: CHF, STOMACH ULCERS Past surgical history: APPENDECTOMY Medications: HYDRALAZINE, LASIX, AMIODARONE HPI: Poor Historian. REVIEW OF SYSTEMS: CONSTITUTIONAL: Denies acute: fever, diaphoresis, chills, generalized weakness. HEAD: Denies acute: headache, photophobia Eyes: Denies acute: Double vision, vision loss, eye pain, eye discharge. EARS: Denies acute: tinnitus, hearing loss, ear discharge, ear pain, THROAT: Denies acute: sore throat, swelling, difficulty swallowing , pain with swallowing, change in voice. NECK: Denies acute: neck pain, neck swelling, stiff neck. HEART: Denies acute : palpitations, LUNGS: Denies acute: SOB, wheezing, cough, hemoptysis ABDOMEN: Denies acute: abdominal pain, Nausea, Vomiting, diarrhea, melena , hematemesis, hematochezia SKIN: Denies acute: rash, redness, lesions, itchiness. EXTREMITIES: Denies acute: calf pain, weakness, denies pain in extremity. Denies acute: Low back pain. Neuro: Denies acute: focal neurological deficit, motor or sensory focal neurological deficit, tremors, seizure like activity, confusion, dizziness, change in mental status, loss of bowel or bladder function, cauda equina like symptoms. : Denies acute: dysuria, hematuria, flank pain, increase in urinary frequency. PSYCH: Denies acute: hallucination, suicidal ideation, homicidal ideation. PHYSICAL EXAM: General: ---[id number]----acute distress, awake and alert. Head: normocephalic, atraumatic. Neck: supple, trachea is midline, no swelling. Throat: Normal phonation. Eyes:, no erythema, no purulent discharge, no proptosis, no icterus. Heart: regular rate, regular rhythm, no significant murmur appreciated. Lungs: no apparent respiratory distress, Able to speak in full sentences. No wheezing, no rhonchi, no crackles. No stridors Clear to auscultation bilaterally. Abdomen: non tender to palpation, non distended, soft, no guarding, no rebound, + bowel sounds. Neuro: Awake, Alert, oriented to name, self, situation, follows commands GCS=15. Speech is normal. Skin: no petechia, no purpura, no cyanosis, non-pale, not jaundice. Lower extremities: --no - Pitting edema no deformity, no focal swelling, no calf TTP. Makes eye contact. moves all four extremities. Face: no apparent facial droop. . Ambulating in the ED independently. ED COURSE: Time Seen by MD: 10:45 Primary Care Provider: KISHA Reviewed Notes: Nurses Notes, Medications, Allergies Allergies: Coded Allergies: NO KNOWN ALLERGIES (Unverified , 08/01/18) Home Meds Active Scripts Potassium Chloride (Klor-Con 8) 8 Meq Tab, 8 MEQ PO DAILY for 60 Days, #60 TAB Prov:FABRICIO LLANOS [employer] STUDIES PROFESSOR 08/07/23 Aspirin (Aspirin Low Dose) 81 Mg Tab, 81 MG PO DAILY for 60 Days, #60 TAB Prov:FABRICIO LLANOS [employer] STUDIES PROFESSOR 08/07/23 Furosemide (Furosemide) 20 Mg Tab, 20 MG PO DAILY for 60 Days, #60 TAB Prov:FABRICIO LLNAOS [employer] STUDIES PROFESSOR 08/07/23 Carvedilol (COREG) 3.125 Mg Tab, 3.125 MG PO Q12HR for 60 Days, #120 TAB Prov:FABRICIO LLANOS [employer] STUDIES PROFESSOR 08/07/23 Reported Medications Amiodarone Hcl (AMIODARONE HCL) 100 Mg Tab, 1 TAB PO DAILY 09/02/24 Atorvastatin Calcium (ATORVASTATIN CALCIUM) 20 Mg Tab, 20 MG PO HS 09/02/24 Omeprazole (Omeprazole Dr) 20 Mg Cap, 1 CAP PO DAILY 09/02/24 Hydralazine Hcl (Hydralazine Hcl) 25 Mg Tab, 25 MG PO BID, MG 01/09/24 Discontinued Reported Medications Amiodarone Hcl (Amiodarone Hcl) 200 Mg Tab, 200 MG PO DAILY, TAB 01/09/24 Empagliflozin (Jardiance) 10 Mg Tab, 10 MG PO DAILY, TAB 01/09/24 Isosorbide Mononitrate (Isosorbide Mononitrate Er) 30 Mg Tab, 30 MG PO DAILY, TAB 01/09/24 Discontinued Scripts Benzonatate (Benzonatate) 100 Mg Cap, 1 CAP PO Q8HP PRN, #20 CAP Prov:ROSARIO AYALA PAC 04/10/24 Acetaminophen (Acetaminophen) 500 Mg Tab, 500 MG PO Q4HP PRN, #30 TAB Prov:ROSARIO AYALA PAC 04/10/24 Oseltamivir Phosphate (Tamiflu) 75 Mg Cap, 75 MG PO BID for 5 Days, #10 CAP Prov:ROSARIO AYALA PAC 04/10/24 Hydroxyzine HCl (Hydroxyzine Hydrochloride) 25 Mg Tab, 25 MG PO Q6HPRN PRN, #30 TAB Prov:MCKAY CESPEDES [facility] 05/04/23 Information Source: Patient Mode of Arrival: Ambulatory Severity: Moderate Timing: Days Duration: Since onset Prehospital treatment: None Location: Substernal Radiation: Arm (L) Quality: Pressure, Tightness Onset: At Rest Cardiac Risk Factors: Other (CHF) PE Risk Factors: None History of: None Modifying Factors: Nothing Associated Signs and Symptoms: None Was a procedure done? Was a procedure done?: No CP Differential Dx Differential Diagnosis: N/A Differential Diagnosis: Other (DDX include renal disease, thyroid disease, electrolyte abnormality, increased salt intake, medications non-compliance, undiagnosed HTN, Hypertensive crisis, hypertensive urgency., drug toxicity.) Differential Diagnosis: Other (Ddx include but not limitied to gastritis, musculoskeletal pain, radiculopathy, atypical chest pain, dissection, aneurysm, ACS, unstable angina, hiatal hernia, GERD, anxiety, costochondritis, PE, pneumothroax, neoplasm, cardiac ischemia, drug abuse, anemia.) X-Ray, Labs, Meds, VS Vital Signs Date Time Temp Pulse Resp B/P (MAP) Pulse Ox O2 Delivery O2 Flow Rate FiO2 09/02/24 13:00 98.0 51 14 181/118 (139) 97 98.0 09/02/24 12:41 98.0 54 15 182/118 (139) 97 98.0 09/02/24 11:49 174/112 09/02/24 11:36 55 09/02/24 11:06 190/125 09/02/24 11:04 55 16 96 Room Air* 0 21 09/02/24 11:03 97.9 55 16 190/125 (146) 96 97.9 09/02/24 10:47 50 09/02/24 10:32 97.6 54 20 191/131 (151) 98 97.6 Lab Test 09/02/24 12:09 09/02/24 11:55 09/02/24 10:56 Range/Units Urine Opiates Screen Neg NEGATIVE Urine Fentanyl Screen Neg NEGATIVE Urine Barbiturates Screen Neg NEGATIVE Urine Phencyclidine Screen Neg NEGATIVE Urine Amphetamines Screen Neg NEGATIVE Urine Benzodiazepines Screen Neg NEGATIVE Urine Cocaine Screen Neg NEGATIVE Urine Cannabinoids Screen Pos NEGATIVE Troponin I High Sensitivity 10 11 </=54 ng/L White Blood Count 3.6 L 4.4-10.8 10^3/uL Red Blood Count 5.33 4.5-5.90 10^6/uL Hemoglobin 16.5 13.5-17.5 g/dL Hematocrit 46.4 41.0-53.0 % Mean Corpuscular Volume 87.1 80.0-100.0 fL Mean Corpuscular Hemoglobin 31.0 28.0-32.0 pg Mean Corpuscular Hemoglobin Concent 35.6 32.0-36.0 g/dL Red Cell Distribution Width 13.4 11.8-14.3 % Platelet Count 273 140-450 10^3/uL Mean Platelet Volume 7.8 6.9-10.8 fL Neutrophils (%) (Auto) 38.3 37.0-80.0 % Lymphocytes (%) (Auto) 39.7 10.0-50.0 % Monocytes (%) (Auto) 8.8 0.0-12.0 % Eosinophils (%) (Auto) 11.8 H 0.0-7.0 % Basophils (%) (Auto) 1.4 0.0-2.0 % Neutrophils # (Auto) 1.4 L 1.6-8.6 10 ^3/uL Lymphocytes # (Auto) 1.4 0.4-5.4 10 ^3/uL Monocytes # (Auto) 0.3 0-1.3 10 ^3/uL Eosinophils # (Auto) 0.4 0-0.8 10 ^3/uL Basophils # (Auto) 0.1 0-0.2 10 ^3/uL Nucleated Red Blood Cells 0.3 % Prothrombin Time 10.9 9.3-11.8 sec Prothrombin Time INR 1.03 0.9-1.15 Activated Partial Thromboplast Time 28.8 24.5-34.5 SEC Sodium Level 141 136-145 mmol/L Potassium Level 3.6 3.5-5.1 mmol/L Chloride Level 106 98-107 mmol/L Carbon Dioxide Level 28 20-31 mmol/L Anion Gap 7 5-15 Blood Urea Nitrogen 16 9-23 mg/dL Creatinine 1.76 H 0.700-1.30 mg/dL Glomerular Filtration Rate Calc 52 >90 mL/min BUN/Creatinine Ratio 9.1 L 10.0-20.0 Serum Glucose 91 74-106 mg/dL Lactic Acid Level 0.9 0.4-2.0 mmol/L Calcium Level 10.2 8.7-10.4 mg/dL Total Bilirubin 1.0 0.2-1.0 mg/dL Aspartate Amino Transferase (AST) 15 13-40 U/L Alanine Aminotransferase (ALT) 26 7-40 U/L Alkaline Phosphatase 75 46-116 U/L B-Type Natriuretic Peptide 17.44 0-100 pg/mL Total Protein 8.2 5.7-8.2 g/dL Albumin 4.9 H 3.2-4.8 g/dL Current Medications Medications (Trade) Dose Ordered Sig/Connie Route Start Time Stop Time Status Last Admin Aspirin (Ecotrin Enteric Coated Tablet) 325 mg ONCE ONCE PO 09/02/24 11:00 09/02/24 11:01 DC 09/02/24 11:05 Nitroglycerin (Ntrostat Sublingual) 0.4 mg ONCE ONCE SL 09/02/24 11:00 09/02/24 11:01 DC 09/02/24 11:[address] [address] Ph: [phone] DIAGNOSTIC IMAGING Diagnostic Imaging Report : [id number] Signed PATIENT: AUSTYN CHU AACCT: [id number] UNIT: [id number] : 1990 LOC: OVERFLOW ROOM / BED: 1011-ERT / A AGE / SEX: 34 / M ADM STATUS: ADM IN SERVICE 1046 ORDERING PHYSICIAN: DONTA CLOUD DO PROCEDURE(s): CXRP - CHEST PORTABLE REASON: cp ORDER NUMBER(s): [id number], ACCESSION NUMBER(s): [id number] INDICATION: cp TECHNIQUE: Frontal view of the chest. COMPARISON: XY CHEST XRAY 1 VIEW on DOS: 08/04/23 FINDINGS: . The heart and mediastinal contours are grossly unremarkable. There is no evidence of pleural disease. The lungs are clear. The bony structures of the chest are intact without fracture. IMPRESSION: 1. No evidence of acute disease. ATED BY: KAELA CALVILLO MD DICTATED DATE/TIME: 09/02/24 1424 SIGNED BY: KAELA CALVILLO MD SIGNED DATE/TIME: 09/02/24 1424 CC: Time of 1ST Reevaluation: 11:15 Reevaluation 1ST: Unchanged Time of 2ND Reevaluation: 21:22 Reevaluation 2ND: Improved Patient Education/Counseling: Diagnosis, Treatment Family Education/Counseling: Other Comments Patient presented with the above HPI.--cardiac----workup was initiated. patient was found with the above mentioned diagnosis. the following medications were ordered: please refer to order lists of meds and tests obtained by myself Dr. Cloud. Patient ED course and VS have been stabilized. Patient has been reassessed in the ED and remained in a stable condition. Pertinent incidental findings were discussed with the patient and/or family. Patient/family voices understanding and is agreeable with plan. Patient has been observed in the ED adequate length of time to insure improvement/stability. Escalation of care considered: Consideration of escalation to observation or admission Multiple medications were given to control the patient's blood pressure. Patient has a history of CHF with multiple cardiac problems. Patient was ADMITTED to the medicine team for further evaluation and treatment of their presentation. All the reports of any imaging studies that were ordered by myself were reviewed by myself. Departure 1 Departure Time of Disposition: 11:28 Impression: Primary Impression: Chest pain Additional Impressions: Abnormal EKG Hypertensive crisis Disposition: 09 ADMITTED INPATIENT Admit to: Tele Condition: Guarded Additional Instructions: [facility] [address] [facility] [address] Ph: [phone] DIAGNOSTIC IMAGING Diagnostic Imaging Report : [id number] Signed PATIENT: AUSTYN CHU ACCT: [id number] UNIT: [id number] : 1990 LOC: OVERFLOW ROOM / BED: [address] [place] [address] AGE / SEX: 34 / M ADM STATUS: ADM IN SERVICE 1046 ORDERING PHYSICIAN: DONTA CLOUD DO PROCEDURE(s): CXRP - CHEST PORTABLE REASON: cp ORDER NUMBER(s): [id number], ACCESSION NUMBER(s): [id number] INDICATION: cp TECHNIQUE: Frontal view of the chest. COMPARISON: XY CHEST XRAY 1 VIEW on DOS: 08/04/23 FINDINGS: . The heart and mediastinal contours are grossly unremarkable. There is no evidence of pleural disease. The lungs are clear. The bony structures of the chest are intact without fracture. IMPRESSION: 1. No evidence of acute disease. ATED BY: KAELA CALVILLO MD DICTATED DATE/TIME: 09/02/241423 SIGNED BY: KAELA CALVILLO MD SIGNED DATE/TIME: 09/02/24 142 CC: Discharged With: Self Critical Care Note Critical Care Time?: Yes (45 min-critical care time only) Heart Score Heart Score: Heart Score Response (Comments) Value History Moderate Suspicious [address]-Deviation 2 Age <45 0 Risk Factors >3 or Hx ASHD 2 Troponin Normal limit 0 Total 5 I personally scribed for DONTA CLOUD DO ([email or web address]) on 09/02/24 at 10:57. Electronically submitted by Sharmaine Mejia ([email or web address]). I personally scribed for DONTA CLOUD DO ([email or web address]) on 09/02/24 at 11:10. Electronically submitted by Sharmaine Mejia ([email or web address]). I personally scribed for DONTA CLOUD DO ([email or web address]) on 09/02/24 at 13:08. Electronically submitted by Sharmaine Mejia ([email or web address]). I personally scribed for DONTA CLOUD DO ([email or web address]) on 09/02/24 at 15:09. Electronically submitted by Sharmaine Mejia ([email or web address]). I personally scribed for DONTA CLOUD DO ([email or web address]) on 09/02/24 at 15:10. Electronically submitted by Sharmaine Mejia ([email or web address]). DONTA CLOUD DO Sep 02, 2024 10:57
[2024-09-02 11:04] VITALS: PULSE 55; RESP 16; O2SAT 96
[2024-09-02] MEDS: ASPirin-EC 325mg tab PO ONE (11:05)
[2024-09-02] MEDS: NITROGLYCERIN 0.4 MG SL TAB SL ONE (11:06)
[2024-09-02 11:13] LABS: Basophils # (auto) 0.1 10 ^3/uL (0-0.2); Basophils % (auto) 1.4 % (0.0-2.0); Eosinophils # (auto) 0.4 10 ^3/uL (0-0.8); Eosinophils % (auto) 11.8 % (0.0-7.0); Hematocrit 46.4 % (41.0-53.0); Hemoglobin 16.5 g/dL (13.5-17.5); Lymphocytes # (auto) 1.4 10 ^3/uL (0.4-5.4); Lymphocytes % (auto) 39.7 % (10.0-50.0); Mean Corpuscular Hgb Conc. 35.6 g/dL (32.0-36.0); Mean Corpuscular Volume 87.1 fL (80.0-100.0); Monocytes # (auto) 0.3 10 ^3/uL (0-1.3); Monocytes % (auto) 8.8 % (0.0-12.0); Neutrophils # (auto) 1.4 10 ^3/uL (1.6-8.6); Neutrophils % (auto) 38.3 % (37.0-80.0); Nucleated Red Blood Cells % 0.3 %; Platelet Count (auto) 273 10^3/uL (140-450); Red Blood Cells 5.33 10^6/uL (4.5-5.90); Red Cell Distribution Width 13.4 % (11.8-14.3); White Blood Cell 3.6 10^3/uL (4.4-10.8)
[2024-09-02 11:30] LABS: INR 1.03 (0.9-1.15); Partial Thromboplastin Time 28.8 SEC (24.5-34.5); Prothrombin Time 10.9 sec (9.3-11.8)
[2024-09-02 11:34] LABS: Alanine Aminotransferase 26 U/L (7-40); Albumin 4.9 g/dL (3.2-4.8); Alkaline Phosphatase 75 U/L (46-116); Anion Gap 7 (5-15); Aspartate Aminotransferase 15 U/L (13-40); BUN/Creatinine Ratio 9.1 (10.0-20.0); Blood Urea Nitrogen 16 mg/dL (9-23); Calcium 10.2 mg/dL (8.7-10.4); Carbon Dioxide 28 mmol/L (20-31); Chloride 106 mmol/L (98-107); Glucose 91 mg/dL (74-106); Potassium 3.6 mmol/L (3.5-5.1); Sodium 141 mmol/L (136-145); Total Protein 8.2 g/dL (5.7-8.2)
[2024-09-02] MEDS ORDERED: AMIO100T3 PO (13:33)
[2024-09-02] MEDS ORDERED: OMEP1CAP70 PO (13:33)
[2024-09-02] MEDS ORDERED: ATOR20TA50 PO (13:33)
--- NOTE | 2024-09-02 13:43 | DVHHP2 ---
History of Present Illness Reason for Visit: Chest Pain History of Present Illness Isaias Turner is a 34-year-old male with past medical history of hypertension, hyperlipidemia, CHF, and ulcers who comes in with complaints of chest pain. Patient states the pain began this morning. It started with generalized chest tightness, then sharp/stabbing pain to the left side of his chest, with associated left arm numbness. Patient states he did take his med ications this morning, but he has not been taking them for at least a week because he thought he was doing better. Patient follows with Dr. Abraham for cardiology, states his last ECHO was around February of 2024. Cardiovascular: CHF, HTN, hyperipidemia Past Surgical History: Appendectomy Smoke: No ALCOHOL: none (quit 1 year ago) Drugs: None (quit methamphetamines 2.5 years ago) Lives: Alone Domestic Violence: Neg Review of Systems Constitutional: No: Fever, Chills, Sweats, Weakness, Malaise, Other Eyes: No: Pain, Vision change, Conjunctivae inflammation, Eyelid inflammation, Other, Redness ENT: No: Ear pain, Ear discharge, Nose pain, Nose discharge, Nose congestion, Mouth pain, Mouth swelling, Throat pain, Throat swelling, Other Respiratory: No: Cough, Dry, Shortness of breath, SOB with excertion, Wheezing, Hemoptysis, Pleuritic Pain, Sputum, Wheezing, Other Cardiovascular: Chest Pain, Palpitations; No: Orthopnea, Paroxysmal Noc. Dyspnea, Edema, Lt Headedness, Other Gastrointestinal: No: Nausea, Vomiting, Abdominal Pain, Diarrhea, Constipation, Melena, Hematochezia, Other Genitourinary: No Dysuria, No Frequency, No Incontinence, No Hematuria, No Retention, No Other Musculoskeletal: No: other, neck pain, shoulder pain, arm pain, back pain, hand pain, leg pain, foot pain Skin: No: Rash, Lesions, Jaundice, Bruising, Other Neurological: No: Weakness, Numbness, Incoordination, Change in speech, Confusion, Seizures, Other Allergies: Coded Allergies: NO KNOWN ALLERGIES (Unverified , 08/01/18) Medications Current Medications Medications Dose Ordered Sig/Connie Route Start Time Stop Time Status Last Admin Dose Admin Hydralazine HCl 25 mg BID PO 09/02/24 22:00 UNV Exam Vital Signs Vital Signs Date Time Temp Pulse Resp B/P (MAP) Pulse Ox O2 Delivery O2 Flow Rate FiO2 09/02/24 13:00 98.0 51 14 181/118 (139) 97 98.0 09/02/24 11:04 Room Air* 0 21 General Appearance: Alert, Oriented X3, Cooperative, mild distress HEENT: Atraumatic, PERRLA Respiratory: Clear to auscultation, Normal air movement Cardiovascular: Normal S1, Normal S2, No murmurs, Other (bradycardia) Abdominal: Normal bowel sounds, Soft, No tenderness, No hepatospenomegaly Extremities: No clubbing, No cyanosis, No edema, Normal pulses Skin: No rashes, No breakdown, No significant lesion Neuro: Normal gait, Normal speech, Strength at 5/5 X4 ext Psych/Mental Status: Mental status NL, Mood NL Labs/Xrays Labs Test 09/02/24 11:55 09/02/24 10:56 Range/Units Troponin I High Sensitivity 10 </=54 ng/L White Blood Count 3.6 L 4.4-10.8 10^3/uL Red Blood Count 5.33 4.5-5.90 10^6/uL Hemoglobin 16.5 13.5-17.5 g/dL Hematocrit 46.4 41.0-53.0 % Mean Corpuscular Volume 87.1 80.0-100.0 fL Mean Corpuscular Hemoglobin 31.0 28.0-32.0 pg Mean Corpuscular Hemoglobin Concent 35.6 32.0-36.0 g/dL Red Cell Distribution Width 13.4 11.8-14.3 % Platelet Count 273 140-450 10^3/uL Mean Platelet Volume 7.8 6.9-10.8 fL Neutrophils (%) (Auto) 38.3 37.0-80.0 % Lymphocytes (%) (Auto) 39.7 10.0-50.0 % Monocytes (%) (Auto) 8.8 0.0-12.0 % Eosinophils (%) (Auto) 11.8 H 0.0-7.0 % Basophils (%) (Auto) 1.4 0.0-2.0 % Neutrophils # (Auto) 1.4 L 1.6-8.6 10 ^3/uL Lymphocytes # (Auto) 1.4 0.4-5.4 10 ^3/uL Monocytes # (Auto) 0.3 0-1.3 10 ^3/uL Eosinophils # (Auto) 0.4 0-0.8 10 ^3/uL Basophils # (Auto) 0.1 0-0.2 10 ^3/uL Nucleated Red Blood Cells 0.3 % Prothrombin Time 10.9 9.3-11.8 sec Prothrombin Time INR 1.03 0.9-1.15 Activated Partial Thromboplast Time 28.8 24.5-34.5 SEC Sodium Level 141 136-145 mmol/L Potassium Level 3.6 3.5-5.1 mmol/L Chloride Level 106 98-107 mmol/L Carbon Dioxide Level 28 20-31 mmol/L Anion Gap 7 5-15 Blood Urea Nitrogen 16 9-23 mg/dL Creatinine 1.76 H 0.700-1.30 mg/dL Glomerular Filtration Rate Calc 52 >90 mL/min BUN/Creatinine Ratio 9.1 L 10.0-20.0 Serum Glucose 91 74-106 mg/dL Lactic Acid Level 0.9 0.4-2.0 mmol/L Calcium Level 10.2 8.7-10.4 mg/dL Total Bilirubin 1.0 0.2-1.0 mg/dL Aspartate Amino Transferase (AST) 15 13-40 U/L Alanine Aminotransferase (ALT) 26 7-40 U/L Alkaline Phosphatase 75 46-116 U/L B-Type Natriuretic Peptide 17.44 0-100 pg/mL Total Protein 8.2 5.7-8.2 g/dL Albumin 4.9 H 3.2-4.8 g/dL TECHNIQUE: Frontal view of the chest. FINDINGS: . The heart and mediastinal contours are grossly unremarkable. There is no evidence of pleural disease. The lungs are clear. The bony structures of the chest are intact without fracture. IMPRESSION: 1. No evidence of acute disease. Assessment/Plan Assessment/Plan Assessment: Hypertensive crisis, Chest Pain, CHF, Hyperlipidemia, Plan: Admit to Tele, Cardiology consult, ECHO, Continuous telemetry monitoring, Home medications reconciled, Plan discussed with: Patient My Orders Orders - BAKARI CARLTON SIMULATION SPECIALIST Procedure Category Date Status Time * Cardiology Consult CONS 09/02/24 Transmitted 13:30 Hydralazine Hcl PHA 09/02/24 Logged Tablet (Apresoline 22:00 Hydralazine Hcl PHA 09/02/24 Verified Tablet (Apresoline 13:45 Admit ADMIT 09/02/24 Verified 13:33 Code Status CODE 09/02/24 Verified 13:33 2 Gm Sodium Diet DIET 09/02/24 Verified Dinner Sodium Chloride Lock PHA 09/02/24 Verified (Saline Lock Ns) 14:00 Hydrocodone-Acet PHA 09/02/24 Verified 5/325mg Tab ([place] 13:45 Ondansetron Hcl PHA 09/02/24 Verified (Zofran) 13:45 Docusate Sodium PHA 09/02/24 Verified Capsule (Colace 13:45 Complete Blood Count LAB 09/03/24 Verified 04:00 Comprehensive LAB 09/03/24 Verified Metabolic Panel 04:00 Condition: Serious ROBERT 09/02/24 Verified 13:33 Acetaminophen Tablet PHA 09/02/24 Verified (Tylenol Tablet) 13:45 Nitroglycerin PHA 09/02/24 Verified Sublingual (Ntrostat 13:45 Morphine Sulfate PHA 09/02/24 Verified Injection 13:45 Stat Ekg For Chest ROBERT 09/02/24 Verified Pain 13:33 Notify Md Of Changes ROBERT 09/02/24 Verified From Base 13:33 Reshipping Clerk For [facility] 09/02/24 Verified 24 Hours 13:33 Emergency Dysrhythmia ROBERT 09/02/24 Verified Protocol 13:33 Rhythm Strips Once ROBERT 09/02/24 Verified Every Shift 13:33 Oxygen By Nasal RT 09/02/24 Verified Cannula 13:33 Atorvastatin (Lipitor) PHA 09/02/24 Verified 22:00 (Nf) Amiodarone Hcl PHA 09/03/24 Verified 10:00 (Nf) Omeprazole PHA 09/03/24 Verified (Omeprazole Dr) 10:00 Date of Service: Sep 02, 2024 Billing Provider: BAKARI CARLTON Common Visit Codes: [id number] INP/OBS CARE (MOD) BAKARI CARLTON Sep 02, 2024 13:43
[2024-09-02] MEDS ORDERED: NITROGLYCERIN 0.4 MG SL TAB SL PRN (13:45)
[2024-09-02] MEDS ORDERED: DOCUSATE SOD 100 MG CAP PO PRN (13:45)
[2024-09-02] MEDS ORDERED: HYDROcodone-ACET 5/325MG TAB PO PRN (13:45)
[2024-09-02] MEDS ORDERED: MORPHINE SULFATE INJ 2 MG/ml SYRG IV PRN (13:45)
[2024-09-02] MEDS: SODIUM CHLOR 0.9% PF (SALINE LOCK) 10ML VIAL/SYR IV SCH (14:05)
[2024-09-02] MEDS: hydrALAZINE HCL 25 MG TAB PO ONE (14:05)
--- NOTE | 2024-09-02 14:27 | DVH ---
INDICATION: cp TECHNIQUE: Frontal view of the chest. COMPARISON: XY CHEST XRAY 1 VIEW on DOS: 08/04/23 FINDINGS: . The heart and mediastinal contours are grossly unremarkable. There is no evidence of pleural disea se. The lungs are clear. The bony structures of the chest are intact without fracture. IMPRESSION: 1. No evidence of acute disease.
[2024-09-02] MEDS: CARVEDILOL 3.125 MG TAB PO ONE (14:36)
--- NOTE | 2024-09-02 14:41 | DVHINCON2 ---
Date of service: Sep 02, 2024 History of Present Illness HPI Patient is a 34-year-old gentleman who presented to the hospital with chest pain. He was somehow short of breath also. Does have history of nonischemic/dilated cardiomyopathy that later improved EF. Previously he was abusing alcohol/amphetamines. He still smokes cigarettes and marijuana. On arrival to Emergency room was found to have high blood pressure (over 180/110). Does have noncompliance history. Cardiology is involved for cardiac aspects of care. He is known to our practice from before and outside. Home Meds Active Scripts Potassium Chloride (Klor-Con 8) 8 Meq Tab, 8 MEQ PO DAILY for 60 Days, #60 TAB Prov:FABRICIO LLANOS BIOLOGY MANAGER 08/07/23 Aspirin (Aspirin Low Dose) 81 Mg Tab, 81 MG PO DAILY for 60 Days, #60 TAB Prov:FABRICIO LLANOS BIOLOGY MANAGER 08/07/23 Furosemide (Furosemide) 20 Mg Tab, 20 MG PO DAILY for 60 Days, #60 TAB Prov:FABRICIO LLANOS BIOLOGY MANAGER 08/07/23 Carvedilol (COREG) 3.125 Mg Tab, 3.125 MG PO Q12HR for 60 Days, #120 TAB Prov:FABRICIO LLANOS BIOLOGY MANAGER 08/07/23 Reported Medications Amiodarone Hcl (AMIODARONE HCL) 100 Mg Tab, 1 TAB PO DAILY 09/02/24 Atorvastatin Calcium (ATORVASTATIN CALCIUM) 20 Mg Tab, 20 MG PO HS 09/02/24 Omeprazole (Omeprazole Dr) 20 Mg Cap, 1 CAP PO DAILY 09/02/24 Hydralazine Hcl (Hydralazine Hcl) 25 Mg Tab, 25 MG PO BID, MG 01/09/24 Discontinued Reported Medications Amiodarone Hcl (Amiodarone Hcl) 200 Mg Tab, 200 MG PO DAILY, TAB 01/09/24 Empagliflozin (Jardiance) 10 Mg Tab, 10 MG PO DAILY, TAB 01/09/24 Isosorbide Mononitrate (Isosorbide Mononitrate Er) 30 Mg Tab, 30 MG PO DAILY, TAB 01/09/24 Discontinued Scripts Benzonatate (Benzonatate) 100 Mg Cap, 1 CAP PO Q8HP PRN, #20 CAP Prov:ROSARIO AYALA PAC 04/10/24 Acetaminophen (Acetaminophen) 500 Mg Tab, 500 MG PO Q4HP PRN, #30 TAB Prov:ROSARIO AYALA PAC 04/10/24 Oseltamivir Phosphate (Tamiflu) 75 Mg Cap, 75 MG PO BID for 5 Days, #10 CAP Prov:ROSARIO AYALA PAC 04/10/24 Hydroxyzine HCl (Hydroxyzine Hydrochloride) 25 Mg Tab, 25 MG PO Q6HPRN PRN, #30 TAB Prov:MCKAY CESPEDES FUNDRAISING DIRECTOR 05/04/23 Past Medical History Others Past medical history includes hypertension, hyperlipidemia, CKD, peptic ulcer disease, history of appendectomy and history of dilated cardiomyopathy (at a point was on life vest, was taken away after improvement of ejection fraction). Did have systolic heart failure before. Last echocardiogram (performed as outpatient) had reported improved systolic function. 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 Family History: No pertinent Hx Patient Family History: Patient reports no known family medical history. Smoker: Positive Alocohol: Occassional Drugs: Marijuana Lives with: With family Review of Systems Constitutional: No symptom reported Ears, Nose, & Throat: No symptom reported Pulmonary/Respiratory: Dyspnea Cardiovascular: Chest Pain Gastrointestinal: No symptom reported All Other Systems Fourteen point review of system was performed. Relevant findings as per above and as per HPI. Otherwise negative. H&P Exam Vital Signs Vital Signs Date Time Temp Pulse Resp B/P (MAP) Pulse Ox O2 Delivery O2 Flow Rate FiO2 09/02/24 14:05 181/118 09/02/24 13:35 48 09/02/24 13:00 98.0 14 97 98.0 09/02/24 11:04 Room Air* 0 21 General Appeara: Well developed, Well nourished, Normal Appearance Head Exam: Normal inspection Eye Exam: bilateral eye PERRL Nasal Exam: Normal inspection Mouth: Normal Inspection Pulmonary/Respiratory: Lungs clear Cardiovascular/Chest: Normal inspection, Regular rate, Systolic murmur Peripheral Pulses: 2+ carotid (R), 2+ carotid (L), 2+ femoral (R), 2+ femoral (L), 2+ dorsalis pedis (R), 2+ dorsalis pedis (L), 2+ Radial (R), 2+ Radial (L) Abdominal Exam: Normal bowel sounds, Soft, No hepatospenomegaly Neuro/Mental St: Alert, Oriented Appearance: Appropriate appearance Eye contact/ Speech: Cooperative Labs/Xrays Labs Test 4/2/25 14:02 09/02/24 10:56 Range/Units White Blood Count 3.6 L 4.4-10.8 10^3/uL Red Blood Count 5.33 4.5-5.90 10^6/uL Hemoglobin 16.5 13.5-17.5 g/dL Hematocrit 46.4 41.0-53.0 % Mean Corpuscular Volume 87.1 80.0-100.0 fL Mean Corpuscular Hemoglobin 31.0 28.0-32.0 pg Mean Corpuscular Hemoglobin Concent 35.6 32.0-36.0 g/dL Red Cell Distribution Width 13.4 11.8-14.3 % Platelet Count 273 140-450 10^3/uL Mean Platelet Volume 7.8 6.9-10.8 fL Neutrophils (%) (Auto) 38.3 37.0-80.0 % Lymphocytes (%) (Auto) 39.7 10.0-50.0 % Monocytes (%) (Auto) 8.8 0.0-12.0 % Eosinophils (%) (Auto) 11.8 H 0.0-7.0 % Basophils (%) (Auto) 1.4 0.0-2.0 % Neutrophils # (Auto) 1.4 L 1.6-8.6 10 ^3/uL Lymphocytes # (Auto) 1.4 0.4-5.4 10 ^3/uL Monocytes # (Auto) 0.3 0-1.3 10 ^3/uL Eosinophils # (Auto) 0.4 0-0.8 10 ^3/uL Basophils # (Auto) 0.1 0-0.2 10 ^3/uL Nucleated Red Blood Cells 0.3 % Prothrombin Time 10.9 9.3-11.8 sec Prothrombin Time INR 1.03 0.9-1.15 Activated Partial Thromboplast Time 28.8 24.5-34.5 SEC Sodium Level 141 136-145 mmol/L Potassium Level 3.6 3.5-5.1 mmol/L Chloride Level 106 98-107 mmol/L Carbon Dioxide Level 28 20-31 mmol/L Anion Gap 7 5-15 Blood Urea Nitrogen 16 9-23 mg/dL Creatinine 1.76 H 0.700-1.30 mg/dL Glomerular Filtration Rate Calc 52 >90 mL/min BUN/Creatinine Ratio 9.1 L 10.0-20.0 Serum Glucose 91 74-106 mg/dL Lactic Acid Level 0.9 0.4-2.0 mmol/L Calcium Level 10.2 8.7-10.4 mg/dL Total Bilirubin 1.0 0.2-1.0 mg/dL Aspartate Amino Transferase (AST) 15 13-40 U/L Alanine Aminotransferase (ALT) 26 7-40 U/L Alkaline Phosphatase 75 46-116 U/L B-Type Natriuretic Peptide 17.44 0-100 pg/mL Total Protein 8.2 5.7-8.2 g/dL Albumin 4.9 H 3.2-4.8 g/dL Assessment/Plan Plan Patient is a 34-year-old gentleman who presented to the hospital with chest pain. He was somehow short of breath also. Does have history of nonischemic/dilated cardiomyopathy that later improved EF. Previously he was abusing alcohol/amphetamines. He still smokes cigarettes and marijuana. On arrival to Emergency room was found to have high blood pressure (over 180/110). Does have noncompliance history. Cardiology is involved for cardiac aspects of care. He is known to our practice from before and outside. Not in acute distress. Lying in bed. No JVD. Mucosa is pink and wet. No carotid bruit. Lungs are clear to auscultation. Not using accessory muscles of breathing. Cardiac: Regular, no thrill/gallop. Systolic murmur 2/6 in the apex is heard. Abdomen is soft. Bowel sound is positive. There is no gross mass/hepatomegaly. Extremities do not reveal edema. Dorsalis pedis 2+ bilateral Past medical history includes hypertension, hyperlipidemia, CKD, peptic ulcer disease, history of appendectomy and history of dilated cardiomyopathy (at a point was on life vest, was taken away after improvement of ejection fraction). Did have systolic heart failure before. Last echocardiogram (performed as outpatient) had reported improved systolic function. 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 Echocardiogram of August 05, 2023 had reported ejection fraction of 10%, dilated chambers, mild TR and right ventricular systolic pressure of 45 mm Hg Echocardiogram of November 12, 2023 (performed in the office) had reported ejection fraction of 50-55%, pseudo normal LV filling, mild MR/TR and right ventricular systolic pressure of less than 35 mm Hg Nuclear stress test of April 21, 2024 (performed in the office) had reported normal perfusion and ejection fraction of 54% Creatinine: 1.76 Potassium: 3.6 BNP: 17.44 Troponin (high sensitive): 11 - 10 EKG revealed sinus rhythm with LVH and nonspecific T-wave changes Tele reveals sinus rhythm Patient is a 34-year-old gentleman who presented with chest discomfort. On arrival to Emergency room the patient's blood pressure has been high. Does have history of high blood pressure. Presentation questions hypertensive emergency. Serial high sensitive troponin has been negative. Nuclear stress test of April 2024 (performed in the office) had been nonrevealing. Patient does have old history of systolic heart failure for which was on LifeVest for a while. After improvement of ejection fraction, LifeVest was taken away. Does have old history of substance abuse which could have contributed to the clinical picture. Chest pain Hypertensive emergency History of nonischemic cardiomyopathy HFimpEF Hypertension Hyperlipidemia CKD Peptic ulcer disease, history of Cardiac suggestion for management: Manage on telemetry Follow-up electrolytes and kidney function tests and correct abnormalities Keep potassium above 4 and magnesium above 2 Follow-up blood pressure and control hypertension At this point, carvedilol 6.25 p.o. b.i.d.. Hydralazine p.r.n. Request for echocardiogram Request for D-dimer, if abnormal request for venous Doppler of lower extremities and CT angiography of the chest Request for urine toxicology Request for alcohol level No indication to repeat ischemic workup at this point Lifestyle and risk factor modifications Thank you for consultation Further evaluation and management depends on the above and clinical course A total of 75 minutes was spent reviewing the patient record, examining the patient, making a diagnostic and therapeutic plan, discussing this plan with medical personnel, following up on diagnostic studies and following the patient for clinical stability excluding any and all procedures. At least 50% of this time was spent in direct, [id number] contact. Thank you for allowing me to participate in this patient's care. Further recommendations will depend on patient's clinical course. Please do not hesitate to contact me if you have any questions or concerns. This medical document was created using electronic medical record system with [employer] dictation system. Although this document has been carefully reviewed, there may still be some phonetic and typographical errors. These areas are purely typographical due to the imperfection of the software programs, and do not reflect any compromise in the patient's medical care. Plan discussed with: Patient, Other (nurse) ROSARIO WASHINGTON MD Sep 02, 2024 14:41
[2024-09-02 15:10] LABS: Benzodiazephine Screen, Urine Neg (NEGATIVE)
[2024-09-02 15:12] LABS: Amphetamine Screen, Urine Neg (NEGATIVE); Barbiturate Scree,Urine Neg (NEGATIVE); Cannabinoid Screen, Urine Pos (NEGATIVE); Cocaine Screen, Urine Neg (NEGATIVE); Opiate Scree,Urine Neg (NEGATIVE); Phencyclidine Screen, Urine Neg (NEGATIVE)
--- NOTE | 2024-09-02 19:03 | ECG ---
[facility] Test Date: 2024-09-02 Test Time: 11:36:26 Pat Name: AUSTYN CHU Department: ED Room: 0212T Gender: M Visual Education Teacher: sadie : 1990 Requested By: DONTA CLOUD Order Number: [id number] Reading MD: Jeronimo Graves Measurements Intervals [place] Rate: 55 P: 71 [place]: 148 QRS: 72 QRSD: 108 T: -82 QT: 424 QTc: 406 Interpretive Statements Sinus rhythm RSR' in V1 or V2, probably normal variant Probable LVH with secondary repol abnrm Electronically Signed On 09-02-2024 22:15:50 PDT by Jeronimo Graves Please click the below link to view image of tracing.
[2024-09-02 20:09] VITALS: PULSE 68; RESP 22; O2SAT 96
[2024-09-02 21:46] VITALS: BP 166/109; PULSE 67; RESP 17; TEMP 98.4; O2SAT 97
[2024-09-02] MEDS: hydrALAZINE HCL 25 MG TAB PO SCH (22:35)
[2024-09-02] MEDS: ATORVASTATIN 20 MG TAB PO SCH (22:36)
[2024-09-02] MEDS: CARVEDILOL 3.125 MG TAB PO SCH (22:42)
[2024-09-03] VITALS (9 sets, daily range): BP systolic 143–163; BP diastolic 92–114; PULSE 55–88; RESP 15–17; TEMP 97.7–98.5; O2SAT 97–98
[2024-09-03] MEDS: cloNIDine 0.1 mg/24hr 7 DAY PATCH TD ONE (01:44)
[2024-09-03 06:39] LABS: Basophils # (auto) 0 10 ^3/uL (0-0.2); Basophils % (auto) 0.5 % (0.0-2.0); Eosinophils # (auto) 0.4 10 ^3/uL (0-0.8); Eosinophils % (auto) 7.6 % (0.0-7.0); Hematocrit 46.7 % (41.0-53.0); Hemoglobin 16.2 g/dL (13.5-17.5); Lymphocytes # (auto) 1.9 10 ^3/uL (0.4-5.4); Lymphocytes % (auto) 32.9 % (10.0-50.0); Mean Corpuscular Hemoglobin 30.3 pg (28.0-32.0); Mean Corpuscular Hgb Conc. 34.8 g/dL (32.0-36.0); Mean Corpuscular Volume 87.1 fL (80.0-100.0); Monocytes # (auto) 0.6 10 ^3/uL (0-1.3); Monocytes % (auto) 9.8 % (0.0-12.0); Neutrophils # (auto) 2.8 10 ^3/uL (1.6-8.6); Neutrophils % (auto) 49.2 % (37.0-80.0); Nucleated Red Blood Cells % 0.8 %; Platelet Count (auto) 260 10^3/uL (140-450); Red Blood Cells 5.36 10^6/uL (4.5-5.90); Red Cell Distribution Width 13.3 % (11.8-14.3); White Blood Cell 5.8 10^3/uL (4.4-10.8)
[2024-09-03 06:50] LABS: Alanine Aminotransferase 20 U/L (7-40); Albumin 4.2 g/dL (3.2-4.8); Alkaline Phosphatase 68 U/L (46-116); Anion Gap 9 (5-15); Aspartate Aminotransferase 13 U/L (13-40); BUN/Creatinine Ratio 8.6 (10.0-20.0); Bilirubin, Total 1.1 mg/dL (0.2-1.0); Blood Urea Nitrogen 16 mg/dL (9-23); Calcium 9.8 mg/dL (8.7-10.4); Carbon Dioxide 26 mmol/L (20-31); Chloride 105 mmol/L (98-107); Glucose 87 mg/dL (74-106); Potassium 3.6 mmol/L (3.5-5.1); Sodium 140 mmol/L (136-145); Total Protein 7.2 g/dL (5.7-8.2)
--- NOTE | 2024-09-03 07:18 | DVHSR ---
APPROVED REPORT EXAM: Two-dimensional and M-mode echocardiogram with Doppler and color Doppler. Blood Pressure: 181/118 mmHg INDICATION Chest Pain bradycardia RISK FACTORS Height: 5'6, Weight: 148 DIMENSIONS LVDd5.3 (3.8-5.7cm)LA (2D)3.3 (1.9-4.0cm)Aortic Root2.9 (2.0-3.7cm) LVDs3.9 (2.5-4.0cm)LA (MM) (1.9-4.0cm)Aortic Cusp Exc1.6 (1.5-2.0cm) EF (%) 50.0 (55-70%)Rt. Atrium3.5 (1.9-4.0cm)Asc. Aorta cm IVSd0.6 (0.7-1.1cm)RV (D)3.4 (1.8-2.4cm) PWd0.9 (0.7-1.1cm) Mitral Valve MitralMitral Stenosis E wave0.84m/sMV Mean GR.mmHg A wave0.71m/sMV Peak GR.60mmHg E/A ratio1.22D MVAcm2 DECEL [id number] 1/2 Timems Aortic Valve Aortic ValveAortic Stenosis V10.85m/Yvonne Mean GR.4mmHg V21.33m/Yvonne Peak GR.7mmHg LVOT Diameter2.0 (1.8-2.4cm)Doppler AVA2.01cm2 Pulmonic Valve V20.82m/s Tricuspid Valve [id number] Conclusion Left ventricle: Left ventricle was normal-sized. Borderline concentric left ventricular hypertrophy was seen. LVEF was around 50%. Mild diffuse hypokinesis of left ventricle was seen. Right ventricle was normal-sized with normal systolic function. Both atria were normal-sized. Aortic valve: Aortic valve was trileaflet. There was no aortic insufficiency/stenosis. There was tr ivial mitral regurgitation. There was no tricuspid regurgitation. There was no pulmonary valve insu fficiency. As there was no good tricuspid regurgitation jet, right ventricular systolic pressure could not be es timated. There was no pericardial effusion.
--- NOTE | 2024-09-03 07:22 | DVHPN2 ---
Progress Note - Dictate Date Seen: Sep 03, 2024 Medical Necessity Reason Pt with a Central, PICC or Fol: No vital signs Vital Sign Date Time Temp Pulse Resp B/P (MAP) Pulse Ox O2 Delivery O2 Flow Rate FiO2 09/03/24 05:00 98.5 66 16 146/105 (119) 98 98.5 09/02/24 21:57 Room Air* 0 21 Total Intake and Output 09/02/24 09/02/24 09/03/24 15:00 23:00 07:00 Intake Total 310 ml Balance 310 ml medications Current Medications Medications Dose Ordered Sig/Connie Route Start Time Stop Time Status Last Admin Dose Admin Hydralazine HCl 25 mg BID PO 09/02/24 22:00 09/02/24 22:35 25 MG Sodium Chloride 10 ml Q8HR IV 09/02/24 14:00 09/03/24 06:20 10 ML Acetaminophen/ Hydrocodone Bitart 1 tab Q4HP PRN PO 09/02/24 13:45 Ondansetron HCl 4 mg Q4HP PRN IV 09/02/24 13:45 Docusate Sodium 100 mg BIDPRN PRN PO 09/02/24 13:45 Acetaminophen 650 mg Q6HP PRN PO 09/02/24 13:45 Nitroglycerin 0.4 mg Q5MINP PRN SL 09/02/24 13:45 Morphine Sulfate 2 mg Q30M PRN IV 09/02/24 13:45 Atorvastatin Calcium 20 mg HS PO 09/02/24 22:00 09/02/24 22:36 20 MG Amiodarone HCl 100 mg DAILY PO 09/03/24 10:00 Pantoprazole Sodium 40 mg DAILY PO 09/03/24 10:00 Empaglifozin 10 mg DAILY PO 09/03/24 10:00 Carvedilol 6.25 mg Q12HR PO 09/02/24 22:00 09/02/24 22:42 6.25 MG laboratory and microbiology Laboratory Tests 09/03/24 05:42 Test 09/03/24 05:42 Range/Units Serum Glucose 87 74-106 mg/dL Assessment/Plan Patient is a 34-year-old gentleman who presented to the hospital with chest pain. He was somehow short of breath also. Does have history of nonischemic/dilated cardiomyopathy that later improved EF. Previously he was abusing alcohol/amphetamines. He still smokes cigarettes and marijuana. On arrival to Emergency room was found to have high blood pressure (over 180/110). Does have noncompliance history. Cardiology is involved for cardiac aspects of care. He is known to our practice from before and outside. Not in acute distress. Lying in bed. No JVD. Mucosa is pink and wet. No carotid bruit. Lungs are clear to auscultation. Not using accessory muscles of breathing. Cardiac: Regular, no thrill/gallop. Systolic murmur 2/6 in the apex is heard. Abdomen is soft. Bowel sound is positive. There is no gross mass/hepatomegaly. Extremities do not reveal edema. Dorsalis pedis 2+ bilateral Past medical history includes hypertension, hyperlipidemia, CKD, peptic ulcer disease, history of appendectomy and history of dilated cardiomyopathy (at a point was on life vest, was taken away after improvement of ejection fraction). Did have systolic heart failure before. Last echocardiogram (performed as outpatient) had reported improved systolic function. 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 Echocardiogram of August 05, 2023 had reported ejection fraction of 10%, dilated chambers, mild TR and right ventricular systolic pressure of 45 mm Hg Echocardiogram of November 12, 2023 (performed in the office) had reported ejection fraction of 50-55%, pseudo normal LV filling, mild MR/TR and right ventricular systolic pressure of less than 35 mm Hg Nuclear stress test of April 21, 2024 (performed in the office) had reported normal perfusion and ejection fraction of 54% Creatinine: 1.76 Potassium: 3.6 BNP: 17.44 Troponin (high sensitive): 11 - 10 - 10 D-dimer: 0.24 (wnl) Urine toxicology was positive for Cannabinoids Serum alcohol level was 4.3 Chest xry reported: IMPRESSION: 1. No evidence of acute disease. EKG revealed sinus rhythm with LVH and nonspecific T-wave changes Tele reveals sinus rhythm Echocardiogram revealed: Patient is a 34-year-old gentleman who presented with chest discomfort. On arrival to Emergency room the patient's blood pressure has been high. Does have history of high blood pressure. Presentation questions hypertensive emergency. Serial high sensitive troponin has been negative. Nuclear stress test of April 2024 (performed in the office) had been nonrevealing. Patient does have old history of systolic heart failure for which was on LifeVest for a while. After improvement of ejection fraction, LifeVest was taken away. Does have old history of substance abuse which could have contributed to the clinical picture. Chest pain Hypertensive emergency History of nonischemic cardiomyopathy HFimpEF Hypertension Hyperlipidemia CKD Peptic ulcer disease, history of Cardiac suggestion for management: Manage on telemetry Follow-up electrolytes and kidney function tests and correct abnormalities Keep potassium above 4 and magnesium above 2 Follow-up blood pressure and control hypertension Carvedilol 6.25 p.o. b.i.d.. Hydralazine p.r.n. Add Norvasc: 5 mg daily No indication to repeat ischemic workup at this point Lifestyle and risk factor modifications Further evaluation and management depends on the above and clinical course A total of 55 minutes was spent reviewing the patient record, examining the patient, making a diagnostic and therapeutic plan, discussing this plan with medical personnel, following up on diagnostic studies and following the patient for clinical stability excluding any and all procedures. At least 50% of this time was spent in direct, [id number] contact. Thank you for allowing me to participate in this patient's care. Further recommendations will depend on patient's clinical course. Please do not hesitate to contact me if you have any questions or concerns. This medical document was created using electronic medical record system with [employer] computerized dictation system. Although this document has been carefully reviewed, there may still be some phonetic and typographical errors. These areas are purely typographical due to the imperfection of the software programs, and do not reflect any compromise in the patient's medical care. Plan discussed with: Patient, Other (nurse) ROSARIO WASHINGTON MD Sep 03, 2024 07:22
[2024-09-03] MEDS: EMPAGLIFLOZIN 10 MG TAB PO SCH (09:16)
[2024-09-03] MEDS: PANTOPRAZOLE 40 MG TAB PO SCH (09:16)
[2024-09-03] MEDS: amLODIPine BESYLATE 5 MG TAB PO SCH (09:18)
[2024-09-03] MEDS: AMIODARONE HCL 200 MG TAB PO SCH (09:19)
--- NOTE | 2024-09-03 10:54 | ECG ---
[facility] Test Date: 2024-09-02 Test Time: 10:47:04 Pat Name: AUSTYN CHU Department: ER Room: 0212T A Gender: M Legal Biller: GRUPO : 1990 Requested By: DONTA CLOUD Order Number: [id number] Reading MD: Jeronimo Graves Measurements Intervals [place] Rate: 50 P: 56 DE: 147 QRS: 56 QRSD: 114 T: -83 QT: 429 QTc: 392 Interpretive Statements Sinus rhythm Probable left atrial enlargement RSR' in V1 or V2, probably normal variant Left ventricular hypertrophy Nonspecific T abnormalities, inferior leads Electronically Signed On 09-04-2024 18:41:30 PDT by Jeronimo Graves Please click the below link to view image of tracing.
--- NOTE | 2024-09-03 10:54 | ECG ---
[facility] Test Date: 2024-09-02 Test Time: 10:43:14 Pat Name: AUSTYN CHU Department: ER Room: 0212T A Gender: M Optometry Doctor: GRUPO : 1990 Requested By: DONTA CLOUD Order Number: [id number] Reading MD: Jeronimo Graves Measurements Intervals [place] Rate: 52 P: 59 IN: 147 QRS: 57 QRSD: 115 T: -82 QT: 437 QTc: 407 Interpretive Statements Sinus rhythm Probable left ventricular hypertrophy Nonspecific T abnormalities, diffuse leads Electronically Signed On 09-04-2024 18:41:18 PDT by Jeronimo Graves Please click the below link to view image of tracing.
[2024-09-03] MEDS: ACETAMINOPHEN 325 MG TAB PO PRN (13:08)
[2024-09-03] MEDS: ONDANSETRON HCL 4 MG/2 ML VIAL IV PRN (13:09)
[2024-09-03] MEDS ORDERED: CARV6.2517 PO (15:35)
[2024-09-03] MEDS ORDERED: AML5T PO (15:35)
[2024-09-03] MEDS ORDERED: EMPA1TAB PO (15:35)
--- NOTE | 2024-09-03 15:39 | DVHDS2 ---
Discharge Summary Date of Admission Sep 02, 2024 at 13:33 Date of Discharge: Sep 03, 2024 Labs/Diagnostic Data: Laboratory Results Test 09/03/24 05:42 09/02/24 14:02 09/02/24 12:09 09/02/24 10:56 White Blood Count 5.8 10^3/uL (4.4-10.8) Red Blood Count 5.36 10^6/uL (4.5-5.90) Hemoglobin 16.2 g/dL (13.5-17.5) Hematocrit 46.7 % (41.0-53.0) Mean Corpuscular Volume 87.1 fL (80.0-100.0) Mean Corpuscular Hemoglobin 30.3 pg (28.0-32.0) Mean Corpuscular Hemoglobin Concent 34.8 g/dL (32.0-36.0) Red Cell Distribution Width 13.3 % (11.8-14.3) Platelet Count 260 10^3/uL (140-450) Mean Platelet Volume 8.0 fL (6.9-10.8) Neutrophils (%) (Auto) 49.2 % (37.0-80.0) Lymphocytes (%) (Auto) 32.9 % (10.0-50.0) Monocytes (%) (Auto) 9.8 % (0.0-12.0) Eosinophils (%) (Auto) 7.6 % (0.0-7.0) Basophils (%) (Auto) 0.5 % (0.0-2.0) Neutrophils # (Auto) 2.8 10 ^3/uL (1.6-8.6) Lymphocytes # (Auto) 1.9 10 ^3/uL (0.4-5.4) Monocytes # (Auto) 0.6 10 ^3/uL (0-1.3) Eosinophils # (Auto) 0.4 10 ^3/uL (0-0.8) Basophils # (Auto) 0 10 ^3/uL (0-0.2) Nucleated Red Blood Cells 0.8 % Sodium Level 140 mmol/L (136-145) Potassium Level 3.6 mmol/L (3.5-5.1) Chloride Level 105 mmol/L (98-107) Carbon Dioxide Level 26 mmol/L (20-31) Anion Gap 9 (5-15) Blood Urea Nitrogen 16 mg/dL (9-23) Creatinine 1.86 mg/dL (0.700-1.30) Glomerular Filtration Rate Calc 49 mL/min (>90) BUN/Creatinine Ratio 8.6 (10.0-20.0) Serum Glucose 87 mg/dL (74-106) Calcium Level 9.8 mg/dL (8.7-10.4) Total Bilirubin 1.1 mg/dL (0.2-1.0) Aspartate Amino Transferase (AST) 13 U/L (13-40) Alanine Aminotransferase (ALT) 20 U/L (7-40) Alkaline Phosphatase 68 U/L (46-116) Total Protein 7.2 g/dL (5.7-8.2) Albumin 4.2 g/dL (3.2-4.8) D-Dimer, Quantitative 0.24 mg/L FEU (0.0-0.49) Troponin I High Sensitivity 10 ng/L (</=54) Plasma/Serum Blood Alcohol 4.3 mg/dL (<10) Urine Opiates Screen Neg (NEGATIVE) Urine Fentanyl Screen Neg (NEGATIVE) Urine Barbiturates Screen Neg (NEGATIVE) Urine Phencyclidine Screen Neg (NEGATIVE) Urine Amphetamines Screen Neg (NEGATIVE) Urine Benzodiazepines Screen Neg (NEGATIVE) Urine Cocaine Screen Neg (NEGATIVE) Urine Cannabinoids Screen Pos (NEGATIVE) Prothrombin Time 10.9 sec (9.3-11.8) Prothrombin Time INR 1.03 (0.9-1.15) Activated Partial Thromboplast Time 28.8 SEC (24.5-34.5) Lactic Acid Level 0.9 mmol/L (0.4-2.0) B-Type Natriuretic Peptide 17.44 pg/mL (0-100) Other Laboratory Tests 09/03/24 05:42 Brief Hx & Hospital Course: 34-year-old male with known history of congestive heart failure with systolic dysfunction, marijuana use, hypertension, peptic ulcer disease and EGD presented to the hospital with chest pain which was stabbing pain in the left side of the chest with numbness of the left arm. Which the patient was found to have hypertensive urgency. Troponins were negative. Cardiology was consulted who recommended to increase dose of carvedilol as well as Jardiance as well as add amlodipine. Patient clonidine was discontinued and other medication was started. Patient currently stable to be discharged he is chest pain free. Patient needs to follow up with Dr. Abraham in 1-2 weeks. Condition at Discharge: Stable Final Diagnosis/Problems List 1. Hypertensive urgency, resolved 2. Congestive heart failure with systolic dysfunction currently compensated 3. Nonischemic cardiomyopathy with EF of 50% 4. Marijuana use 5. Peptic ulcer disease Discharge Disposition: Home SNF Discharge Will this Physician continue t: No Discharge Instruct/Medications Diet: Cardiac 2g Na,low cholest Activity: No Restrictions, As Tolerated Follow Up/Referral: Follow up with Cardiology Dr. Abraham in 1 week Medications: Amlodipine, carvedilol with increased dose, Jardiance Discharge Statement: "Patient was advised to return to the ER or call 911 if any headaches, dizziness, shortness of breath, chest pain, abdominal pain, bleeding, fevers, or worsening of medical condition. Patient was counseled about treatment plan, medications, possible side effects, patientverbalized understanding. All questions were answered to the best of my ability. This discharge took greater then 30 minutes in planning, reviewing documentation, counseling the patient, and discussing with other team members." ASSESSMENT ASSESSMENT Assessment 1. Hypertensive urgency, resolved 2. Congestive heart failure with systolic dysfunction currently compensated 3. Nonischemic cardiomyopathy with EF of 50% 4. Marijuana use 5. Peptic ulcer disease Date of Service: Sep 03, 2024 Billing Provider: NIKKI GARCIA MD Common Visit Codes: [id number] INP/OBS CARE(MOD), 33117-LRS/OBS DISCH DAY >30min NIKKI GARCIA MD Sep 03, 2024 15:39
[2024-09-03] MEDS: hydrALAZINE HCL 25 MG TAB PO ONE (18:03)
--- NOTE | 2024-09-04 13:12 | ECG ---
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
== END 2024-09-03 19:38 | disposition home or self-care (01) | DRG 199 ==
LOC: ER 10:32 → OVERFLOW 13:33 → TELE-CENTR 21:46
PROVIDERS: ADMIT Internal Medicine; ATTEND Internal Medicine
DX: I16.0 Hypertensive urgency (principal); I42.8 Other cardiomyopathies; I50.32 Chronic diastolic (congestive) heart failure; I16.1 Hypertensive emergency; E78.5 Hyperlipidemia, unspecified; I13.0 Hypertensive heart and chronic kidney disease with heart failure and stage 1 through stage 4 chronic kidney disease, or unspecified chronic kidney disease; N18.9 Chronic kidney disease, unspecified; K27.9 Peptic ulcer, site unspecified, unspecified as acute or chronic, without hemorrhage or perforation; F17.210 Nicotine dependence, cigarettes, uncomplicated; F12.90 Cannabis use, unspecified, uncomplicated; Z79.899 Other long term (current) drug therapy; Z90.49 Acquired absence of other specified parts of digestive tract; Z91.199 Patient's noncompliance with other medical treatment and regimen due to unspecified reason; Z79.84 Long term (current) use of oral hypoglycemic drugs; Z79.82 Long term (current) use of aspirin
CPT/HCPCS: 36415; 71045; 80053; 80307; 80320; 83605; 83880; 84484; 85025; 85379; 85610; 85730; 93005; 93306; G0378; J2405

== ENCOUNTER 2024-11-14 15:40 | Emergency (ER) | payer MEDICAID ==
[~2024-11-14] VITALS: Ht 170.2 cm; Wt 66.1 kg
[~2024-11-14 15:40] MED LIST changes: -ACET500T58 PO; +AMIO100T3 PO; -AMIO200T33 PO; +AML5T PO; -ASPI-325 PO; +ATOR20TA50 PO; -BENZ100C97 PO; -CARV-214 PO; +CARV6.2517 PO; -HYDR-4924 PO; -ISOS1TAB28 PO; +OMEP1CAP70 PO; -TAMIFLU PO
--- NOTE | 2024-11-14 16:18 | ED.PDOC ---
Musculoskeletal HPI Comments 34 y/o M, with PMHx of CHF, HTN, and PUD presents to the ED for CC of upper extremity. Patient states, he has been experiencing left wrist pain x5days following, falling on it. Upon arrival, no swelling or deformity noted to left extremity. Patient denies change in strength, lacerations, hematomas, or musculoskeletal pain. No other symptoms or modifying factors present at this time. Time Seen by MD: 16:20 Primary Care Provider: KISHA Tariq Notes: Nurses Notes, Medications, Allergies Allergies: Coded Allergies: NO KNOWN ALLERGIES (Unverified , 08/01/18) Home Meds Active Scripts Carvedilol (Coreg) 6.25 Mg Tab, 1 TAB PO BID, #60 TAB 5 Refills Prov:NIKKI GARCIA MD 09/03/24 Empagliflozin (Jardiance) 10 Mg Tab, 10 MG PO DAILY, #30 TAB Prov:NIKKI GARCIA MD 09/03/24 Amlodipine Besylate (NORVASC TABLET) 5 Mg Tb, 5 MG PO DAILY, #30 TAB Prov:NIKKI GARCIA MD 09/03/24 Potassium Chloride (Klor-Con 8) 8 Meq Tab, 8 MEQ PO DAILY for 60 Days, #60 TAB Prov:FABRICIO LLANOS MANUFACTURER'S REPRESENTATIVE 08/07/23 Furosemide (Furosemide) 20 Mg Tab, 20 MG PO DAILY for 60 Days, #60 TAB Prov:FABRICIO LLANOS MANUFACTURER'S REPRESENTATIVE 08/07/23 Reported Medications Amiodarone Hcl (AMIODARONE HCL) 100 Mg Tab, 1 TAB PO DAILY 09/02/24 Atorvastatin Calcium (ATORVASTATIN CALCIUM) 20 Mg Tab, 20 MG PO HS 09/02/24 Omeprazole (Omeprazole Dr) 20 Mg Cap, 1 CAP PO DAILY 09/02/24 Hydralazine Hcl (Hydralazine Hcl) 25 Mg Tab, 25 MG PO BID, MG 01/09/24 Information Source: Patient Mode of Arrival: Ambulatory Location: Left Extremity Location: Wrist Timing: Days Prehospital treatment: None Severity: Moderate Able to Move Extremity: Yes Bear Weight: Fully Pain: Moderate Circumstances: Fall Onset of Symptoms: After Trauma Symptoms: Pain DVT Risk Factors: NONE Last Tetanus: Unknown Associated signs and symptoms: Wrist pain Past Medical History PAST MEDICAL HISTORY: CHF, HTN, PUD Surgical History: Appendectomy Family History Family History: Reviewed,noncontributory to illness, Unknown Social History Smoker: Cigarettes Alcohol: Denies ETOH Use Drugs: Marijuana Lives In: Home Constitutional: denies: chills, diaphoresis, fatigue, fever, malaise, sweats, weakness, others EENTM: denies: blurred vision, double vision, ear bleeding, ear discharge, ear drainage, ear pain, ear ringing, eye pain, eye redness, hearing loss, mouth pain, mouth swelling, nasal discharge, nose bleeding, nose congestion, nose pain, photophobia, tearing, throat pain, throat swelling, voice changes, others Respiratory: denies: cough, hemoptysis, orthopnea, SOB at rest, shortness of breath, SOB with excertion, stridor, wheezing, others Cardiovascular: denies: chest pain, dizzy spells, diaphoresis, Dyspnea on exertion, edema, irregular heart beat, left arm pain, lightheadedness, palpitations, PND, syncope, others Gastrointestinal: denies: abdomen distended, abdominal pain, blood streaked bowels, constipated, diarrhea, dysphagia, difficulty swallowing, hematemesis, melena, nausea, poor appetite, poor fluid intake, rectal bleeding, rectal pain, vomiting, others Genitourinary: denies: burning, dysuria, flank pain, frequency, hematuria, incontinence, penile discharge, penile sore, pain, testicle pain, testicle swelling, urgency, others Neurological: denies: dizziness, fainting, headache, left sided numbness, left sided weakness, numbness, paresthesia, pre-existing deficit, right sided numbnes s, right sided weakness, seizure, speech problems, tingling, tremors, weakness, others Musculoskeletal: reports: others (left wrist pain); denies: back pain, gout, joint pain, joint swelling, muscle pain, muscle stiffness, neck pain Integumetry: denies: bruises, change in color, change in hair/nails, dryness, laceration, lesions, lumps, rash, wounds, others Allergic/Immunocompromised: denies: Difficulty Healing, Frequent Infections, Hives, Itching, others Hematologic/Lymphatic: denies: anemia, blood clots, easy bleeding, easy bruising, swollen glands, others Endocrine: denies: excessive hunger, excessive sweating, excessive thirst, excessive urination, flushing, intolerance to cold, intolerance to heat, unexplained weight gain, unexplained weight loss, others Psychiatric: denies: anxiety, bipolar disorder, depression, hopeless, panic disorder, schizophrenia, sleepless, suicidal, others All Other Systems: Reviewed and Negative Physical Exam General Appearance: No Apparent Distress HEENT: Normal ENT Inspection, PERRL/EOMI Neck: Full Range of Motion, Non-Tender, Normal, Normal Inspection Respiratory: Chest Non-Tender, Lungs Clear, No Accessory Muscle Use, No Respiratory Distress, Normal Breath Sounds Cardiovascular: No Edema, No JVD, No Murmur, No Gallop, Normal Peripheral Pulses, Regular Rate/Rhythm Breast Exam: Deferred Gastrointestinal: No Organomegaly, Non Tender, No Pulsatile Mass, Normal Bowel Sounds, Soft Genitalia: Deferred Pelvic: Deferred Rectal: Deferred Extremities: Swelling, Tender, Other (Left wrist tender patient fell head 1st with the abrasions to the palms) Neurologic: Alert, founder and president II-XII nml as Tested, No Motor Deficits, Normal Affect, Normal Mood, No Sensory Deficits Cerebellar Function: Normal Reflexes: Normal Skin: Dry, Normal Color, Warm Peripheral Pulses: 1+ carotid (R), 1+ carotid (L) Lymphatic: No Adenopathy Was a procedure done? Was a procedure done?: No Differential Diagnosis EXT Differential Diagnosis: Sprain, Dislocation, Contusion, Strain X-Ray, Labs, Meds, VS Vital Signs Date Time Temp Pulse Resp B/P (MAP) Pulse Ox O2 Delivery O2 Flow Rate FiO2 11/14/24 18:49 50 15 97 Room Air 11/14/24 18:49 98.3 50 15 156/112 (127) 97 98.3 11/14/24 16:35 98.6 60 17 168/130 (143) 97 98.6 X-Ray, Labs, Meds, VS Comment Course in the emergency department patient fell and abraded both of his palms and both of his wrists are tender mostly the left Examination of the right wrist is fine Examination of the left wrist is tender morbidity is limited there is minimal swelling but mostly of the palmar side worrisome abrasions no infection The x-ray is normal with some soft tissue noted Patient will be discharged strep to follow up with his PCP Time of 1ST Reevaluation: 16:50 Reevaluation 1ST: Unchanged Time of 2ND Reevaluation: 19:16 Reevaluation 2ND: Unchanged Consultation: PCP Patient Education/Counseling: Diagnosis, Treatment, Prognosis, Need For Follow Up Family Education/Counseling: Diagnosis, Treatment, Prognosis, Need For Follow Up, No Family Present Departure 1 Departure Time of Disposition: 19:18 Impression: Primary Impression: Fall at home Qualified Codes: W19.XXXA - Unspecified fall, initial encounter; Y92.009 - Unspecified place in unspecified non-institutional (private) residence as the place of occurrence of the external cause Additional Impression: Soft tissue injury of left wrist Qualified Codes: S69.92XA - Unspecified injury of left wrist, hand and finger(s), initial encounter Disposition: HOME / SELF CARE / HOMELESS Condition: Good Additional Instructions: Keep the Stephen wrap until you feel better and follow up with your PCP e-Prescriptions Naproxen (Naproxen) 375 Mg Tab 1 TAB PO TID for 5 Days, #15 TAB 5 Refills Prov: SHANNAN ALFARO MD 11/14/24 Discharged With: Self Critical Care Note Critical Care Time?: No Stability Stability form required: No Heart Score Heart Score: Heart Score Response (Comments) Value History N/A 0 EKG N/A 0 Age <45 0 Risk Factors 1 or 2 risk factors 1 Troponin N/A 0 Total 1 I personally scribed for SHANNAN ALFARO MD ([email or web address]) on 11/14/24 at 16:18. Electronically submitted by Sharmaine Mejia ([email or web address]). I personally scribed for SHANNAN ALFARO MD ([email or web address]) on 11/14/24 at 16:46. Electronically submitted by Sharmaine Mejia ([email or web address]). SHANNAN ALFARO MD Nov 14, 2024 16:18
[2024-11-14 18:49] VITALS: BP 156/112; PULSE 50; RESP 15; TEMP 98.3; O2SAT 97
--- NOTE | 2024-11-14 18:56 | DVH ---
CLINICAL INDICATION: fall TECHNIQUE: 3 views of the left wrist Comparison: None FINDINGS/IMPRESSION: There is no evidence of acute fracture or dislocation. Palmar soft tissue swelling is noted.
[2024-11-14] MEDS ORDERED: NAPR-957 PO (19:20)
== END 2024-11-14 19:35 | disposition home or self-care (01) ==
LOC: ER 15:40
DX: S60.812A Abrasion of left wrist, initial encounter (principal); F17.210 Nicotine dependence, cigarettes, uncomplicated; F12.90 Cannabis use, unspecified, uncomplicated; I11.0 Hypertensive heart disease with heart failure; I50.9 Heart failure, unspecified; Z79.84 Long term (current) use of oral hypoglycemic drugs; Z87.11 Personal history of peptic ulcer disease; Z90.49 Acquired absence of other specified parts of digestive tract; Z79.899 Other long term (current) drug therapy; W18.39XA Other fall on same level, initial encounter; Y93.89 Activity, other specified; Y92.009 Unspecified place in unspecified non-institutional (private) residence as the place of occurrence of the external cause; Y99.8 Other external cause status
CPT/HCPCS: 73110

== ENCOUNTER 2025-01-09 21:29 | Inpatient (IN) | payer MEDICAID ==
[~2025-01-09] VITALS: Ht 170.2 cm; Wt 63.6 kg
[~2025-01-09 21:29] MED LIST changes: +NAPR-957 PO
[2025-01-09 23:45] LABS: Nucleated Red Blood Cells % 0.1 %
--- NOTE | 2025-01-09 23:45 | ED.PDOC ---
GI ASSESSMENT HPI Comments 34-year-old male who came to ER for abdominal pain. Patient has history of hypertension, CHF, peptic ulcer disease. States for the past three days, he has been having intermittent episodes of sharp epigastric abdominal pain, nonradiating, associated with bouts of nausea and vomiting. Patient also complaining of chest discomfort and shortness a breath. Minimal pedal edema noted. REVIEW OF SYSTEMS: No fever, no chills, or fatigue HEENT: No sore throat, no earache, no congestion, no neck pain. Cardiac: No chest pain. No palpitations. Lungs: No shortness of breath, no cough. GI: (+) nausea, (+) vomiting, no diarrhea, no constipation, (+) abdominal pain : No dysuria, frequency, or urgency. No hematuria. Musculoskeletal: No joint pain , no joint swelling, no extremity edema. Skin: No rash, no itching. Neuro: No headache, no dizziness, no weakness Physical exam General: Awake, alert and oriented. No acute distress. Skin: Skin in warm, dry and intact. Appropriate color for ethnicity. Nailbeds pink with no cyanosis. HEENT: The head is normocephalic and atraumatic. Conjunctivae are clear without exudates or hemorrhage. Sclera is non-icteric. EOM are intact. No signs of nystagmus. Eyelids are normal in appearance without swelling or lesions. Oral mucosa is pink and moist Neck: The neck is supple with normal range of motion. No JVD. Cardiac: Heart rate and rhythm are normal. No murmurs, gallops, or rubs are auscultated. Respiratory: No signs of respiratory distress. Lung sounds are clear in all lobes bilaterally without rales, rhonchi, or wheezes. Abdominal: Abdomen is soft, positive epigastric tenderness without distention, rigidity or guarding. Extremities: Upper and lower extremities are atraumatic in appearance without deformity or edema. Neurological: The patient is awake, alert and oriented to person, place, and time with normal speech. Speech is clear. There is no facial asymmetry. Psychiatric: Appropriate mood and affect. Good judgement and insight. No visual or auditory hallucinations. Chief Complaint: Abdominal Pain Time Seen by MD: 23:44 Primary Care Provider: UNKNOWN Reviewed Notes: Nurses Notes Allergies: Coded Allergies: Amlodipine (Verified Allergy, Unknown, 01/09/25) Home Meds Active Scripts Naproxen (Naproxen) 375 Mg Tab, 1 TAB PO TID for 5 Days, #15 TAB 5 Refills Prov:SHANNAN ALFARO MD 11/14/24 Carvedilol (Coreg) 6.25 Mg Tab, 1 TAB PO BID, #60 TAB 5 Refills Prov:NIKKI GARCIA MD 09/03/24 Empagliflozin (Jardiance) 10 Mg Tab, 10 MG PO DAILY, #30 TAB Prov:NIKKI GARCIA MD 09/03/24 Amlodipine Besylate (NORVASC TABLET) 5 Mg Tb, 5 MG PO DAILY, #30 TAB Prov:NIKKI GARCIA MD 09/03/24 Potassium Chloride (Klor-Con 8) 8 Meq Tab, 8 MEQ PO DAILY for 60 Days, #60 TAB Prov:FABRICIO LLANOS NP 08/07/23 Furosemide (Furosemide) 20 Mg Tab, 20 MG PO DAILY for 60 Days, #60 TAB Prov:FABRICIO LLANOS NP 08/07/23 Reported Medications Amiodarone Hcl (AMIODARONE HCL) 100 Mg Tab, 1 TAB PO DAILY 09/02/24 Atorvastatin Calcium (ATORVASTATIN CALCIUM) 20 Mg Tab, 20 MG PO HS 09/02/24 Omeprazole (Omeprazole Dr) 20 Mg Cap, 1 CAP PO DAILY 09/02/24 Hydralazine Hcl (Hydralazine Hcl) 25 Mg Tab, 25 MG PO BID, MG 01/09/24 Information Source: Patient Mode of Arrival: Ambulatory Past Medical History PAST MEDICAL HISTORY: CHF, HTN, PUD Surgical History: Appendectomy Family History Family History: Reviewed,noncontributory to illness, Unknown Social History Smoker: Cigarettes Alcohol: Denies ETOH Use Drugs: Marijuana Lives In: Home Was a procedure done? Was a procedure done?: No GI differential Dx Differential Diagnosis: Diverticular disease, Gastritis/PUD, Gastroenteritis, Pancreatitis, UTI, Urolithiasis, Electrolyte Imbalance X-Ray, Labs, Meds, VS Vital Signs Date Time Temp Pulse Resp B/P (MAP) Pulse Ox O2 Delivery O2 Flow Rate FiO2 01/10/25 00:49 173/121 01/10/25 00:43 97.7 60 18 165/122 (136) 100 97.7 173/121 (138) 01/09/25 21:31 98.1 80 16 158/116 97 98.1 Lab Test 01/10/25 00:20 01/09/25 23:32 Range/Units Troponin I High Sensitivity 8 9 </=54 ng/L White Blood Count 7.6 4.4-10.8 10^3/uL Red Blood Count 5.90 4.5-5.90 10^6/uL Hemoglobin 18.0 H 13.5-17.5 g/dL Hematocrit 50.5 41.0-53.0 % Mean Corpuscular Volume 85.5 80.0-100.0 fL Mean Corpuscular Hemoglobin 30.5 28.0-32.0 pg Mean Corpuscular Hemoglobin Concent 35.7 32.0-36.0 g/dL Red Cell Distribution Width 13.6 11.8-14.3 % Platelet Count 314 140-450 10^3/uL Mean Platelet Volume 7.8 6.9-10.8 fL Neutrophils (%) (Auto) 67.4 37.0-80.0 % Lymphocytes (%) (Auto) 25.5 10.0-50.0 % Monocytes (%) (Auto) 5.5 0.0-12.0 % Eosinophils (%) (Auto) 1.1 0.0-7.0 % Basophils (%) (Auto) 0.5 0.0-2.0 % Neutrophils # (Auto) 5.1 1.6-8.6 10 ^3/uL Lymphocytes # (Auto) 1.9 0.4-5.4 10 ^3/uL Monocytes # (Auto) 0.4 0-1.3 10 ^3/uL Eosinophils # (Auto) 0.1 0-0.8 10 ^3/uL Basophils # (Auto) 0 0-0.2 10 ^3/uL Nucleated Red Blood Cells 0.1 % Sodium Level 140 136-145 mmol/L Potassium Level 4.3 3.5-5.1 mmol/L Chloride Level 103 98-107 mmol/L Carbon Dioxide Level 24 20-31 mmol/L Anion Gap 13 5-15 Blood Urea Nitrogen 14 9-23 mg/dL Creatinine 1.89 H 0.700-1.30 mg/dL Glomerular Filtration Rate Calc 48 >90 mL/min BUN/Creatinine Ratio 7.4 L 10.0-20.0 Serum Glucose 80 74-106 mg/dL Calcium Level 9.8 8.7-10.4 mg/dL B-Type Natriuretic Peptide 19.38 0-100 pg/mL Lipase 35 12-53 U/L Time of 1ST Reevaluation: 23:42 Reevaluation 1ST: Unchanged Patient Education/Counseling: Need For Follow Up Family Education/Counseling: No Family Present SEPSIS Sepsis Screen Date sepsis recognized/suspect: Jan 09, 2025 Time Sepsis recognized/suspect: 2133 Recent Procedure: No On Antibiotic Therapy: No Respiratory Rate >20: No Heart Rate >90: No Temp<36 C (96.8 F) or >38.3 C: No SBP <90 or MAP <65 mmHG: No New Acute Mental Status Change: No Is the patient on CPAP, BIPAP,: No Physician Orders Electrocardigram (01/09/25 23:20) Chest Xray 1 View (01/09/25 23:20) Electrocardigram (01/10/25 00:20) Urinalysis (01/09/25 23:20) [employer] (01/10/25 ) *[facility] (01/10/25 01:30) Code Status (01/10/25 01:30) Oxygen Per Hour (01/10/25 01:30) Vital Signs Date Time Temp Pulse Resp B/P (MAP) Pulse Ox O2 Delivery O2 Flow Rate FiO2 01/10/25 00:49 173/121 01/10/25 00:43 97.7 60 18 165/122 (136) 100 97.7 173/121 (138) 01/09/25 21:31 98.1 80 16 158/116 97 98.1 Laboratory Tests Test 01/09/25 23:32 White Blood Count 7.6 10^3/uL (4.4-10.8) Departure 1 Departure Time of Disposition: 02:06 Impression: Primary Impression: Hypertensive urgency Additional Impressions: Chest pain Abdominal pain Disposition: ADMITTED INPATIENT Condition: Stable Comments MDM: 54-year-old male who presents with epigastric abdominal pain. Initial evaluation included thorough history, physical examination and appropriate diagnostic testing. Based on the clinical presentation and diagnostic findings, the patient appears to have hypertensive urgency, ongoing chest pain and abdominal pain. Given the complexity of the case and need for further management patient is being admitted to the hospitalist service for further monitoring, treatment and evaluation. Risks, benefits and alternatives of admission and proposed interventions were discussed with the patient. Patient is in agreement with the plan. Critical Care Note Critical Care Time?: No Stability Stability form required: No Heart Score Heart Score: Heart Score Response (Comments) Value History N/A 0 EKG N/A 0 Age N/A 0 Risk Factors N/A 0 Troponin N/A 0 Total 0 I personally scribed for DEBORA MENA MD ([email or web address]) on 01/09/25 at 23:45. Electronically submitted by Willis Hernandez ([facility]). DEBORA MENA MD Jan 09, 2025 23:45
[2025-01-09 23:47] LABS: Hematocrit 50.5 % (41.0-53.0); Hemoglobin 18.0 g/dL (13.5-17.5); Mean Corpuscular Hemoglobin 30.5 pg (28.0-32.0); Mean Corpuscular Volume 85.5 fL (80.0-100.0)
[2025-01-09 23:56] LABS: Chloride 103 mmol/L (98-107); Potassium 4.3 mmol/L (3.5-5.1); Sodium 140 mmol/L (136-145)
[2025-01-09 23:57] LABS: Anion Gap 13 (5-15); Carbon Dioxide 24 mmol/L (20-31)
[2025-01-09 23:58] LABS: Calcium 9.8 mg/dL (8.7-10.4)
[2025-01-10 00:02] LABS: BUN/Creatinine Ratio 7.4 (10.0-20.0); Blood Urea Nitrogen 14 mg/dL (9-23); Glucose 80 mg/dL (74-106)
[2025-01-10 00:03] LABS: Lipase 35 U/L (12-53)
--- NOTE | 2025-01-10 01:08 | DVH ---
CHEST RADIOGRAPH Indication: cp Technique: Single frontal view of the chest was obtained COMPARISON: XY CHEST PORTABLE on DOS: 09/02/24, XY CHEST TWO VIEWS ROUTINE on DOS: 07/06/24, XY CHEST TWO VIEWS ROUTINE on DOS: 04/10/24, XY CHEST TWO VIEWS ROUTINE on DOS: 01/08/24, CT CT ANGIO CHEST CONTRAST on DOS: 08/04/23 FINDINGS: Lines and Tubes: None Lungs: Clear Pleura: No effusion. No pneumothorax. Cardiomediastinal contours: Unremarkable Bones: Unremarkable IMPRESSION: 1. No acute disease.
[2025-01-10] MEDS ORDERED: HYDROcodone-ACET 5/325MG TAB PO PRN (01:30)
[2025-01-10] MEDS ORDERED: ACETAMINOPHEN 325 MG TAB PO PRN (01:30)
[2025-01-10] MEDS ORDERED: DOCUSATE SOD 100 MG CAP PO PRN (01:30)
[2025-01-10] MEDS ORDERED: ONDANSETRON HCL 4 MG/2 ML VIAL IV PRN (01:30)
[2025-01-10] MEDS ORDERED: hydrALAZINE HCL 20 MG/ML VL IV PRN (01:30)
--- NOTE | 2025-01-10 01:54 | DVHHP2 ---
History of Present Illness Reason for Visit: Hypertensive urgency History of Present Illness The patient is a 34-year-old male with past medical history of CHF, hypertension, and peptic ulcer disease presented to [facility] ED with complaint of abdominal pain. Patient reports for the past 2 days he has been having intermittent episode sharp epigastric abdominal pain, nonradiating, associated with bouts of nausea, vomiting, getting worse today that prompted this visit. Patient was seen and evaluated in the ED, laboratory data shows WBC 7.6, platelets 314, sodium 140, potassium 4.3, BUN 14, creatinine 1.89, GFR 48, glucose 80, calcium 9.8, troponin 9, BNP 19.38, blood pressure 172/122, heart ra te 60, temperature 97.7 F, O2 saturation 89% on room. Chest x-ray show no acute disease. Patient was given IV hydralazine, please see medication orders section in the computer. On my assessment, patient denies headache, no chest pain, no shortness of breath, no abdominal pain at this moment, no nausea, vomiting, no fever, no chills. Patient was admitted for evaluation and medical management. Past Medical History CHF, HTN, PUD Past Surgical History Appendectomy Family History Reviewed, noncontributory to the management of this case. Past Social History The patient lives at home, smokes cigarettes, denies alcohol use, uses marijuana. Review of Systems Constitutional: No: Fever, Chills, Sweats, Weakness, Malaise, Other Eyes: No: Pain, Vision change, Conjunctivae inflammation, Eyelid inflammation, Other, Redness ENT: No: Ear pain, Ear discharge, Nose pain, Nose discharge, Nose congestion, Mouth pain, Mouth swelling, Throat pain, Throat swelling, Other Respiratory: No: Cough, Dry, Shortness of breath, SOB with excertion, Wheezing, Hemoptysis, Pleuritic Pain, Sputum, Wheezing, Other Cardiovascular: Chest Pain; No: Palpitations, Orthopnea, Paroxysmal Noc. Dyspnea, Edema, Lt Headedness, Other Gastrointestinal: Nausea, Vomiting, Abdominal Pain; No: Diarrhea, Constipation, Melena, Hematochezia, Other Genitourinary: No Dysuria, No Frequency, No Incontinence, No Hematuria, No Retention, No Other Musculoskeletal: No: other, neck pain, shoulder pain, arm pain, back pain, hand pain, leg pain, foot pain Skin: No: Rash, Lesions, Jaundice, Bruising, Other Neurological: No: Weakness, Numbness, Incoordination, Change in speech, Confusion, Seizures, Other Allergies: Coded Allergies: Amlodipine (Verified Allergy, Unknown, 01/09/25) Medications Current Medications Medications Dose Ordered Sig/Connie Route Start Time Stop Time Status Last Admin Dose Admin Atorvastatin Calcium 10 mg HS PO 01/10/25 22:00 Hydralazine HCl 10 mg Q6HP PRN IV 01/10/25 01:30 Famotidine 20 mg DAILY IV 01/10/25 10:00 Metoprolol Tartrate 25 mg BID PO 01/10/25 10:00 Sodium Chloride 10 ml Q8HR IV 01/10/25 06:00 Acetaminophen/ Hydrocodone Bitart 1 tab Q4HP PRN PO 01/10/25 01:30 Ondansetron HCl 4 mg Q4HP PRN IV 01/10/25 01:30 Docusate Sodium 100 mg BIDPRN PRN PO 01/10/25 01:30 Acetaminophen 650 mg Q6HP PRN PO 01/10/25 01:30 Exam Vital Signs Vital Signs Date Time Temp Pulse Resp B/P (MAP) Pulse Ox O2 Delivery O2 Flow Rate FiO2 01/10/25 00:49 173/121 01/10/25 00:43 97.7 60 18 100 97.7 General Appearance: Alert, Oriented X3, Cooperative HEENT: Atraumatic, PERRLA, EOMI, Mucous membr. moist/pink Respiratory: Clear to auscultation, Normal air movement Cardiovascular: Regular rate, Normal S1, Normal S2, No murmurs Abdominal: Normal bowel sounds, Soft, No hepatospenomegaly, No masses, Other (Reports tenderness) Extremities: No cyanosis, No edema, Normal pulses, No tenderness/swelling Skin: No rashes, No breakdown, No significant lesion Neuro: Normal gait, Normal speech, Strength at 5/5 X4 ext, Normal tone, Sensation intact, Cranial nerves 3-12 NL, Reflexes 2+ Psych/Mental Status: Mental status NL, Mood NL Labs/Xrays Labs Test 01/10/25 00:20 01/09/25 23:32 Range/Units Troponin I High Sensitivity 8 </=54 ng/L White Blood Count 7.6 4.4-10.8 10^3/uL Red Blood Count 5.90 4.5-5.90 10^6/uL Hemoglobin 18.0 H 13.5-17.5 g/dL Hematocrit 50.5 41.0-53.0 % Mean Corpuscular Volume 85.5 80.0-100.0 fL Mean Corpuscular Hemoglobin 30.5 28.0-32.0 pg Mean Corpuscular Hemoglobin Concent 35.7 32.0-36.0 g/dL Red Cell Distribution Width 13.6 11.8-14.3 % Platelet Count 314 140-450 10^3/uL Mean Platelet Volume 7.8 6.9-10.8 fL Neutrophils (%) (Auto) 67.4 37.0-80.0 % Lymphocytes (%) (Auto) 25.5 10.0-50.0 % Monocytes (%) (Auto) 5.5 0.0-12.0 % Eosinophils (%) (Auto) 1.1 0.0-7.0 % Basophils (%) (Auto) 0.5 0.0-2.0 % Neutrophils # (Auto) 5.1 1.6-8.6 10 ^3/uL Lymphocytes # (Auto) 1.9 0.4-5.4 10 ^3/uL Monocytes # (Auto) 0.4 0-1.3 10 ^3/uL Eosinophils # (Auto) 0.1 0-0.8 10 ^3/uL Basophils # (Auto) 0 0-0.2 10 ^3/uL Nucleated Red Blood Cells 0.1 % Sodium Level 140 136-145 mmol/L Potassium Level 4.3 3.5-5.1 mmol/L Chloride Level 103 98-107 mmol/L Carbon Dioxide Level 24 20-31 mmol/L Anion Gap 13 5-15 Blood Urea Nitrogen 14 9-23 mg/dL Creatinine 1.89 H 0.700-1.30 mg/dL Glomerular Filtration Rate Calc 48 >90 mL/min BUN/Creatinine Ratio 7.4 L 10.0-20.0 Serum Glucose 80 74-106 mg/dL Calcium Level 9.8 8.7-10.4 mg/dL B-Type Natriuretic Peptide 19.38 0-100 pg/mL Lipase 35 12-53 U/L PATIENT: AUSTYN CHU AACCT: [id number] UNIT: [id number] : 1990 LOC: ER ROOM / BED: / AGE / SEX: 34 / M ADM STATUS: REG ER SERVICE ORDERING PHYSICIAN: DEBORA MENA MD PROCEDURE(s): CXR1 - CHEST XRAY 1 VIEW REASON: cp ORDER NUMBER(s): [id number], ACCESSION NUMBER(s): [id number] CHEST RADIOGRAPH Indication: cp Technique: Single frontal view of the chest was obtained COMPARISON: XY CHEST PORTABLE on DOS: 09/02/24, XY CHEST TWO VIEWS ROUTINE on DOS: 07/06/24, XY CHEST TWO VIEWS ROUTINE on DOS: 04/10/24, XY CHEST TWO VIEWS ROUTINE on DOS: 01/08/24, CT CT ANGIO CHEST CONTRAST on DOS: 08/04/23 FINDINGS: Lines and Tubes: None Lungs: Clear Pleura: No effusion. No pneumothorax. Cardiomediastinal contours: Unremarkable Bones: Unremarkable IMPRESSION: 1. No acute disease. SEPSIS Sepsis Screen Date sepsis recognized/suspect: Jan 09, 2025 Time Sepsis recognized/suspect: 2133 Recent Procedure: No On Antibiotic Therapy: No Respiratory Rate >20: No Heart Rate >90: No Temp<36 C (96.8 F) or >38.3 C: No SBP <90 or MAP <65 mmHG: No New Acute Mental Status Change: No Is the patient on CPAP, BIPAP,: No Physician Orders Electrocardigram (01/09/25 23:20) Chest Xray 1 View (01/09/25 23:20) Vital Signs Q1HR (01/09/25 23:20) Electrocardigram (01/10/25 00:20) Electrocardigram (01/10/25 02:20) Troponin-I Hs (01/10/25 02:20) Urinalysis (01/09/25 23:20) Home Maker (01/10/25 ) Saline Lock (01/10/25 01:15) Complete Blood Count (01/10/25 04:00) Comprehensive Metabolic Panel (01/10/25 04:00) Atorvastatin (Lipitor) (01/10/25 22:00) Hydralazine Injection (Apresoline Inject (01/10/25 01:30) *[facility] (01/10/25 01:30) Famotidine Injection (Pepcid Injection) (01/10/25 10:00) Metoprolol Tartrate Tablet (Lopressor Ta (01/10/25 10:00) Allergies (01/10/25 01:30) Code Status (01/10/25 01:30) Sodium Chloride Lock (Saline Lock Ns) (01/10/25 06:00) Oxygen Per Hour (01/10/25 01:30) Hydrocodone-Acet 5/325mg Tab ([place] 5/32 (01/10/25 01:30) Ondansetron Hcl (Zofran) (01/10/25 01:30) Docusate Sodium Capsule (Colace Capsule) (01/10/25 01:30) Complete Blood Count (01/11/25 04:00) Comprehensive Metabolic Panel (01/11/25 04:00) Condition: Serious (01/10/25 01:30) Acetaminophen Tablet (Tylenol Tablet) (01/10/25 01:30) Clear Liq Diet (01/10/25 Breakfast) Bedrest With Bathroom Privileg (01/10/25:30) Sequential Compression Device (01/10/25 ) Vital Signs Date Time Temp Pulse Resp B/P (MAP) Pulse Ox O2 Delivery O2 Flow Rate FiO2 01/10/25 00:49 173/121 01/10/25 00:43 97.7 60 18 165/122 (136) 100 97.7 173/121 (138) 01/09/25 21:31 98.1 80 16 158/116 97 98.1 Laboratory Tests Test 01/09/25 23:32 White Blood Count 7.6 10^3/uL (4.4-10.8) Medications Medications Dose Ordered Sig/Connie Route Start Time Stop Time Status Last Admin Dose Admin Clonidine HCl 0.1 mg ONCE ONCE PO 01/10/25 01:00 01/10/25 01:01 DC 01/10/25 00:49 0.1 MG Assessment/Plan Assessment/Plan Hypertensive urgency Chest pain Acute abdominal pain Acute on chronic renal failure Plan 1. Admit to telemetry unit 2. Breathing treatment 3. Pain control management 4. Management of fluids and electrolytes 5. Consultation for Nephrology 6. Diagnostic tests chest x-ray 7. DVT prophylaxis on SCDs 8. Repeat labs CBC, CMP in a.m. 9. Continue with current medical management 10. Treatment plan discussed with patient and RN. Patient verbalized understanding. Plan discussed with: Patient, Other (RN) My Orders Orders - JOHN BRIONES DNP Procedure Category Date Status Time Complete Blood Count LAB 01/10/25 Logged 04:00 Comprehensive LAB 01/10/25 Logged Metabolic Panel 04:00 Atorvastatin (Lipitor) PHA 01/10/25 In Process 22:00 Hydralazine Injection PHA 01/10/25 In Process (Apresoline Inject 01:30 *[facility] CONS 01/10/25 Transmitted -[place] 01:30 Famotidine Injection PHA 01/10/25 In Process (Pepcid Injection) 10:00 Metoprolol Tartrate PHA 01/10/25 In Process Tablet (Lopressor Ta 10:00 Allergies ROBERT 01/10/25 In Process 01:30 Code Status CODE 01/10/25 Transmitted 01:30 Sodium Chloride Lock PHA 01/10/25 In Process (Saline Lock Ns) 06:00 Oxygen Per Hour RT 01/10/25 Transmitted 01:30 Hydrocodone-Acet PHA 01/10/25 In Process 5/325mg Tab ([place]ricks 01:30 Ondansetron Hcl PHA 01/10/25 In Process (Zofran) 01:30 Docusate Sodium PHA 01/10/25 In Process Capsule (Colace 01:30 Complete Blood Count LAB 01/11/25 Verified 04:00 Comprehensive LAB 01/11/25 Verified Metabolic Panel 04:00 Condition: Serious ROBERT 01/10/25 In Process 01:30 Acetaminophen Tablet PHA 01/10/25 In Process (Tylenol Tablet) 01:30 Clear Liq Diet DIET 01/10/25 Transmitted Breakfast Bedrest With Bathroom ROBERT 01/10/25 In Process Privileg 01:30 Sequential ROBERT 01/10/25 In Process Compression Device Problem List: (1) Hypertensive urgency (2) Chest pain (3) Acute abdominal pain (4) Acute on chronic renal failure Date of Service: Jan 10, 2025 Billing Provider: JOHN BRIONES DNP Common Visit Codes: [id number] INP/OBS CARE (HIGH) JOHN BRIONES DNP Jan 10, 2025 01:54
[2025-01-10] MEDS ORDERED: NITROGLYCERIN 0.4 MG SL TAB SL PRN (02:00)
[2025-01-10] MEDS ORDERED: MORPHINE SULFATE INJ 2 MG/ml SYRG IV PRN (02:00)
[2025-01-10 02:36] LABS: Hematocrit 50.2 % (41.0-53.0); Hemoglobin 17.4 g/dL (13.5-17.5); Mean Corpuscular Hemoglobin 29.7 pg (28.0-32.0); Mean Corpuscular Volume 85.6 fL (80.0-100.0); Nucleated Red Blood Cells % 0.1 %
[2025-01-10 02:52] LABS: Alanine Aminotransferase 15 U/L (7-40); Albumin 4.5 g/dL (3.2-4.8); Alkaline Phosphatase 82 U/L (46-116); Anion Gap 14 (5-15); BUN/Creatinine Ratio 8.6 (10.0-20.0); Blood Urea Nitrogen 16 mg/dL (9-23); Calcium 9.5 mg/dL (8.7-10.4); Carbon Dioxide 22 mmol/L (20-31); Chloride 103 mmol/L (98-107); Glucose 87 mg/dL (74-106); Potassium 4.0 mmol/L (3.5-5.1); Sodium 139 mmol/L (136-145); Total Protein 7.9 g/dL (5.7-8.2)
[2025-01-10 02:53] LABS: Bilirubin, Total 1.3 mg/dL (0.2-1.0)
[2025-01-10] MEDS: SODIUM CHLOR 0.9% PF (SALINE LOCK) 10ML VIAL/SYR IV SCH (06:02)
[2025-01-10 09:02] VITALS: BP 161/123; PULSE 58; RESP 16; TEMP 98.2; O2SAT 98
[2025-01-10] MEDS ORDERED: METOPROLOL TARTRATE 25 MG TAB PO SCH (10:00)
[2025-01-10] MEDS ORDERED: FAMOTIDINE (10MG/ML) 2ML VL IV SCH (10:00)
[2025-01-10] MEDS ORDERED: ATORVASTATIN 20 MG TAB PO SCH (22:00)
== END 2025-01-10 01:53 | disposition left against medical advice (07) | DRG 243 ==
LOC: ER 21:29 → OVERFLOW 01-10 01:52
PROVIDERS: ADMIT Nurse Practitioner Family; ATTEND Nurse Practitioner Family
DX: K21.9 Gastro-esophageal reflux disease without esophagitis (principal); N17.9 Acute kidney failure, unspecified; I50.9 Heart failure, unspecified; I13.0 Hypertensive heart and chronic kidney disease with heart failure and stage 1 through stage 4 chronic kidney disease, or unspecified chronic kidney disease; I16.0 Hypertensive urgency; Z53.29 Procedure and treatment not carried out because of patient's decision for other reasons; N18.9 Chronic kidney disease, unspecified; F17.210 Nicotine dependence, cigarettes, uncomplicated; Z87.11 Personal history of peptic ulcer disease; Z79.899 Other long term (current) drug therapy
CPT/HCPCS: 36415; 71045; 80048; 80053; 83690; 83880; 84484; 85025; G0378

== ENCOUNTER 2025-04-06 08:30 | Outpatient (CLI) | payer MEDICAID ==
[~2025-04-06] VITALS: Ht 170.2 cm; Wt 67.1 kg
--- NOTE | 2025-04-09 16:06 | DVHSR ---
APPROVED REPORT Exam: Nuclear Stress Test Indication: Chest pain, Congestive Heart Failure Ht: 5 ft 7 in Wt: 148 lbs BSA: 1.78 m2 HR: 63 bpm BP: 128/97 mmHg BMI: 23.17 Rhythm: NSR, Inverted T wave Medical History Medical History: CHF, CKD, HTN, Hypercholesterolemia, Diabetes Medications: Omeprazole, Amiodarone, Carvedilol, Hydralazine, Chlorthalidone, Jardiance, Triamcinolone Acet, Atorvastatin, Diclofenac, Naproxen, Ondansetron, Sucralfate, Isosorbide mono Allergies: Amlodipine Cardiac Risk Factors: Family Hx of CAD Stress Test Details Stress Test: Exercise stress testing was performed using a Bashir protocol. HR Resting HR: 63 bpm Max Heart Rate (APMHR): 188.795043 bpm Max HR Achieved: 162 bpm Target HR (85% APMHR): 159.231052 bpm % of APMHR: 86.17 Recovery HR: 88 bpm HR response to stress: Normal HR response to stress BP Resting BP: 128/97 mmHg Max BP: 200/96 mmHg Recovery BP: 132/84 mmHg BP response to stress: Exaggerated response ECG Resting ECG: Sinus Rhythm, Inverted T wave Stress ECG: Sinus Tachycardia Arrhythmia: None Recovery ECG: Sinus Rhythm Clinical Reason for Termination: Fatigue, Target HR achieved Stress Symptoms: Mild chest pain, Dyspnea Exercise duration: 13 min 07 sec Exercise capacity: 14.60 METs Symptoms resolved during recovery. Stress ECG Conclusion NON ISCHEMIC CLINICAL RESPONSE NON ISCHEMIC ECG RESPONSE NON ISCHEMIC CARDIOLITE IMAGES EF >55% NM EXAM: Myocardial Perfusion REST/STRESS Imaging Protocol: Rest Tc-99m/Stress Tc-99m 1 day Resting Data Rest SPECT myocardial perfusion imaging was performed in supine position 30 minutes following the intravenous injection of 10.54 mCi of Tc-99m Sestamibi. Time of rest injection: 854 Date: 04/06/2025 Time of rest imagin Date: 04/06/2025 Administration Route: IV Administration Site: Left AC Exercise Stress At peak stress, the patient was injected intravenously with 32.3 mCi of Tc-99m Sestamibi. Time of stress injection: 1016 Date: 04/06/2025 Time of stress imagin Date: 04/06/2025 Administration Route: IV Administration Site: Left AC Heart Rate at time of stress injection: 157 bpm. Patient continued to exercise for 1 minute(s). Gated Stress SPECT was performed 15 minutes after stress injection. The images were gated to evaluate regional wall motion and calculate left ventricular ejection fraction. Comments Cardiolite injection at 12 minutes, 3 seconds into test. Nuclear Conclusion NON ISCHEMIC CLINICAL RESPONSE NON ISCHEMIC ECG RESPONSE NON ISCHEMIC CARDIOLITE IMAGES EF >55%
== END 2025-04-06 17:00 | disposition home or self-care (01) ==
LOC: Rad HDHVI 08:30
PROVIDERS: ATTEND Internal Medicine Cardiovascular Disease
DX: R00.0 Tachycardia, unspecified (principal); R07.89 Other chest pain; I13.0 Hypertensive heart and chronic kidney disease with heart failure and stage 1 through stage 4 chronic kidney disease, or unspecified chronic kidney disease; I50.22 Chronic systolic (congestive) heart failure; E11.22 Type 2 diabetes mellitus with diabetic chronic kidney disease; N18.32 Chronic kidney disease, stage 3b; R94.31 Abnormal electrocardiogram [ECG] [EKG]; E78.00 Pure hypercholesterolemia, unspecified; Z88.8 Allergy status to other drugs, medicaments and biological substances; Z82.49 Family history of ischemic heart disease and other diseases of the circulatory system
CPT/HCPCS: 78452; 93017; A9500; 96374

== ENCOUNTER 2025-04-30 17:43 | Emergency (ER) | payer MEDICAID ==
[~2025-04-30] VITALS: Ht 167.6 cm; Wt 65.3 kg
[2025-04-30 18:37] LABS: Hematocrit 52.9 % (41.0-53.0); Hemoglobin 18.3 g/dL (13.5-17.5); Mean Corpuscular Hemoglobin 29.4 pg (28.0-32.0); Mean Corpuscular Volume 84.9 fL (80.0-100.0); Nucleated Red Blood Cells % 0.5 %
--- NOTE | 2025-04-30 18:37 | ED.PDOC ---
HPI Comments 34-year-old male came to ER for palpitations. Patient diagnosed with congestive heart failure, states he donated plasma 2 days ago and shortly afterwards he started experiencing palpitations. Palpitations progressively worsened today, associated nausea and tingling of all extremities. States he donated plasma before had the congestive heart failure, but never experienced these symptoms Chief Complaint: Palpitations Time Seen by MD: 18:36 Primary Care Provider: UNKNOWN Reviewed Notes: Nurses Notes Allergies: Coded Allergies: Amlodipine (Verified Allergy, Unknown, 01/09/25) Home Meds Active Scripts Hydralazine Hcl (Hydralazine Hcl) 25 Mg Tab, 25 MG PO BID for 90 Days, #180 TAB 3 Refills Prov:GRIS LOVELL MD 04/30/25 Naproxen (Naproxen) 375 Mg Tab, 1 TAB PO TID for 5 Days, #15 TAB 5 Refills Prov:SHANNAN ALFARO MD 11/14/24 Carvedilol (Coreg) 6.25 Mg Tab, 1 TAB PO BID, #60 TAB 5 Refills Prov:NIKKI GARCIA MD 09/03/24 Empagliflozin (Jardiance) 10 Mg Tab, 10 MG PO DAILY, #30 TAB Prov:NIKKI GARCIA MD 09/03/24 Amlodipine Besylate (NORVASC TABLET) 5 Mg Tb, 5 MG PO DAILY, #30 TAB Prov:NIKKI GARCIA MD 09/03/24 Potassium Chloride (Klor-Con 8) 8 Meq Tab, 8 MEQ PO DAILY for 60 Days, #60 TAB Prov:FABRICIO LLANOS [employer] 08/07/23 Furosemide (Furosemide) 20 Mg Tab, 20 MG PO DAILY for 60 Days, #60 TAB Prov:FABRICIO LLANOS [employer] 08/07/23 Reported Medications Amiodarone Hcl (AMIODARONE HCL) 100 Mg Tab, 1 TAB PO DAILY 09/02/24 Atorvastatin Calcium (ATORVASTATIN CALCIUM) 20 Mg Tab, 20 MG PO HS 09/02/24 Omeprazole (Omeprazole Dr) 20 Mg Cap, 1 CAP PO DAILY 09/02/24 Hydralazine Hcl (Hydralazine Hcl) 25 Mg Tab, 25 MG PO BID, MG 01/09/24 Information Source: Patient Mode of Arrival: Ambulatory Past Medical History PAST MEDICAL HISTORY: CHF, HTN, PUD Surgical History: Appendectomy Family History Family History: Reviewed,noncontributory to illness, Unknown Social History Smoker: Cigarettes Alcohol: Denies ETOH Use Drugs: Marijuana Lives In: Home Constitutional: denies: chills, diaphoresis, fatigue, fever, malaise, sweats, weakness, others EENTM: denies: blurred vision, double vision, ear bleeding, ear discharge, ear drainage, ear pain, ear ringing, eye pain, eye redness, hearing loss, mouth pain, mouth swelling, nasal discharge, nose bleeding, nose congestion, nose pain, photophobia, tearing, throat pain, throat swelling, voice changes, others Respiratory: denies: cough, hemoptysis, orthopnea, SOB at rest, shortness of breath, SOB with excertion, stridor, wheezing, others Cardiovascular: reports: palpitations; denies: chest pain, dizzy spells, diaphoresis, Dyspnea on exertion, edema, irregular heart beat, left arm pain, lightheadedness, PND, syncope, others Gastrointestinal: reports: nausea; denies: abdomen distended, abdominal pain, blood streaked bowels, constipated, diarrhea, dysphagia, difficulty swallowing, hematemesis, melena, poor appetite, poor fluid intake, rectal bleeding, rectal pain, vomiting, others Genitourinary: denies: burning, dysuria, flank pain, frequency, hematuria, incontinence, penile discharge, penile sore, pain, testicle pain, testicle swelling, urgency, others Neurological: reports: tingling; denies: dizziness, fainting, headache, left sided numbness, left sided weakness, numbness, paresthesia, pre-existing deficit, right sided numbness, right sided weakness, seizure, speech problems, tremors, weakness, others Musculoskeletal: denies: back pain, gout, joint pain, joint swelling, muscle pain, muscle stiffness, neck pain, others Integumetry: denies: bruises, change in color, change in hair/nails, dryness, laceration, lesions, lumps, rash, wounds, others Allergic/Immunocompromised: denies: Difficulty Healing, Frequent Infections, Hives, Itching, others Hematologic/Lymphatic: denies: anemia, blood clots, easy bleeding, easy bruising, swollen glands, others Endocrine: denies: excessive hunger, excessive sweating, excessive thirst, excessive urination, flushing, intolerance to cold, intolerance to heat, unexplained weight gain, unexplained weight loss, others Psychiatric: denies: anxiety, bipolar disorder, depression, hopeless, panic disorder, schizophrenia, sleepless, suicidal, others Physical Exam General Appearance: No Apparent Distress, Normal HEENT: Normal ENT Inspection, Pharynx Normal, TMs Normal Neck: Full Range of Motion, Non-Tender, Normal, Normal Inspection Respiratory: Chest Non-Tender, Lungs Clear, No Accessory Muscle Use, No Respiratory Distress, Normal Breath Sounds Cardiovascular: No Edema, No JVD, No Murmur, No Gallop, Normal Peripheral Pul ses, Regular Rate/Rhythm Breast Exam: Deferred Gastrointestinal: No Organomegaly, Non Tender, No Pulsatile Mass, Normal Bowel Sounds, Soft Genitalia: Deferred Pelvic: Deferred Rectal: Deferred Extremities: No calf tenderness, Normal capillary refill, Normal inspection, Normal range of motion, Non-tender, No pedal edema Musculoskeletal : Apperance: Normal Neurologic: Alert, extrusion press adjuster II-XII nml as Tested, No Motor Deficits, Normal Affect, Normal Mood, No Sensory Deficits Cerebellar Function: Normal Reflexes: Normal Skin: Dry, Normal Color, Warm Lymphatic: No Adenopathy EKG EKG : Pulse Rate (adult): 74 Cardiac Rhythm: NSR Was a procedure done? Was a procedure done?: No CP Differential Dx Differential Diagnosis: Angina, Anxiety / Panic Attack, Electrolyte Disorder, Hyperventilation, Sinus Tachycardia Differential Diagnosis: CHF X-Ray, Labs, Meds, VS Vital Signs Date Time Temp Pulse Resp B/P (MAP) Pulse Ox O2 Delivery O2 Flow Rate FiO2 04/30/25 21:35 99.0 87 18 142/115 (124) 96 99.0 04/30/25 21:35 87 18 96 Room Air 04/30/25 21:29 142/115 04/30/25 18:37 74 04/30/25 17:52 74 04/30/25 17:45 98.3 92 18 158/105 98 98.3 Lab Test 04/30/25 21:24 04/30/25 19:24 04/30/25 18:26 Range/Units Troponin I High Sensitivity 26 25 22 </=54 ng/L White Blood Count 6.4 4.4-10.8 10^3/uL Red Blood Count 6.22 H 4.5-5.90 10^6/uL Hemoglobin 18.3 H 13.5-17.5 g/dL Hematocrit 52.9 41.0-53.0 % Mean Corpuscular Volume 84.9 80.0-100.0 fL Mean Corpuscular Hemoglobin 29.4 28.0-32.0 pg Mean Corpuscular Hemoglobin Concent 34.6 32.0-36.0 g/dL Red Cell Distribution Width 14.5 H 11.8-14.3 % Platelet Count 275 140-450 10^3/uL Mean Platelet Volume 7.2 6.9-10.8 fL Neutrophils (%) (Auto) 56.3 37.0-80.0 % Lymphocytes (%) (Auto) 31.1 10.0-50.0 % Monocytes (%) (Auto) 9.4 0.0-12.0 % Eosinophils (%) (Auto) 2.7 0.0-7.0 % Basophils (%) (Auto) 0.5 0.0-2.0 % Neutrophils # (Auto) 3.6 1.6-8.6 10 ^3/uL Lymphocytes # (Auto) 2.0 0.4-5.4 10 ^3/uL Monocytes # (Auto) 0.6 0-1.3 10 ^3/uL Eosinophils # (Auto) 0.2 0-0.8 10 ^3/uL Basophils # (Auto) 0 0-0.2 10 ^3/uL Nucleated Red Blood Cells 0.5 % Sodium Level 140 136-145 mmol/L Potassium Level 3.4 L 3.5-5.1 mmol/L Chloride Level 103 98-107 mmol/L Carbon Dioxide Level 27 20-31 mmol/L Anion Gap 10 5-15 Blood Urea Nitrogen 13 9-23 mg/dL Creatinine 1.79 H 0.700-1.30 mg/dL Glomerular Filtration Rate Calc 51 >90 mL/min BUN/Creatinine Ratio 7.3 L 10.0-20.0 Serum Glucose 90 74-106 mg/dL Calcium Level 9.7 8.7-10.4 mg/dL Total Bilirubin 1.2 H 0.2-1.0 mg/dL Aspartate Amino Transferase (AST) 21 13-40 U/L Alanine Aminotransferase (ALT) 16 7-40 U/L Alkaline Phosphatase 91 46-116 U/L B-Type Natriuretic Peptide 5.78 0-100 pg/mL Total Protein 7.8 5.7-8.2 g/dL Albumin 4.5 3.2-4.8 g/dL Current Medications Medications (Trade) Dose Ordered Sig/Connie Route Start Time Stop Time Status Last Admin Potassium Chloride (Klor-Con Tablet) 20 meq ONCE ONCE PO 04/30/25 20:45 04/30/25 20:46 DC 04/30/25 21:29 Hydralazine HCl (Apresoline Tablet) 25 mg ONCE ONCE PO 04/30/25 20:45 04/30/25 20:46 DC 04/30/25 21:29 CHEST RADIOGRAPH Indication: chest pain Technique: Single frontal view of the chest was obtained Comparison: XY CHEST XRAY 1 VIEW on DOS: 01/09/25, XY CHEST PORTABLE on DOS: 09/02/24, XY CHEST XRAY 1 VIEW on DOS: 08/04/23 FINDINGS: Lines and Tubes: None Lungs: No focal consolidation. Zipperpull is noted overlying the midline mediastinum which is most likely external to the patient. Pleura: No effusion. No pneumothorax. Cardiomediastinal contours: Unremarkable Bones: No acute osseous abnormality. A rojas is Noted overlying the left supraclavicular region. IMPRESSION: No acute cardiopulmonary disease. Time of 1ST Reevaluation: 18:33 Reevaluation 1ST: Unchanged Patient Education/Counseling: Diagnosis, Treatment Family Education/Counseling: No Family Present SEPSIS Sepsis Screen Date sepsis recognized/suspect: Apr 30, 2025 Time Sepsis recognized/suspect: 1746 Recent Procedure: No On Antibiotic Therapy: No Respiratory Rate >20: No Heart Rate >90: Yes Temp<36 C (96.8 F) or >38.3 C: No SBP <90 or MAP <65 mmHG: No New Acute Mental Status Change: No Is the patient on CPAP, BIPAP,: No Physician Orders Chest Xray 1 View (04/30/25 18:05) Vital Signs Date Time Temp Pulse Resp B/P (MAP) Pulse Ox O2 Delivery O2 Flow Rate FiO2 04/30/25 21:35 99.0 87 18 142/115 (124) 96 99.0 04/30/25 21:35 87 18 96 Room Air 04/30/25 21:29 142/115 04/30/25 18:37 74 04/30/25 17:52 74 04/30/25 17:45 98.3 92 18 158/105 98 98.3 Laboratory Tests Test 04/30/25 18:26 White Blood Count 6.4 10^3/uL (4.4-10.8) Medications Medications Dose Ordered Sig/Connie Route Start Time Stop Time Status Last Admin Dose Admin Hydralazine HCl 25 mg ONCE ONCE PO 04/30/25 20:45 04/30/25 20:46 DC 04/30/25 21:29 Potassium Chloride 20 meq ONCE ONCE PO 04/30/25 20:45 04/30/25 20:46 DC 04/30/25 21:29 Departure 1 Departure Time of Disposition: 20:30 Impression: Primary Impression: Palpitations Additional Impression: Renal insufficiency Disposition: HOME / SELF CARE / HOMELESS Condition: Stable e-Prescriptions Hydralazine Hcl (Hydralazine Hcl) 25 Mg Tab 25 MG PO BID for 90 Days, #180 TAB 3 Refills Prov: GRIS LOVELL MD 04/30/25 Discharged With: Self Critical Care Note Critical Care Time?: No Stability Stability form required: No Heart Score Heart Score: Heart Score Response (Comments) Value History Slightly Suspicious 0 EKG Normal 0 Age <45 0 Risk Factors 1 or 2 risk factors 1 Troponin Normal limit 0 Total 1 I personally scribed for GRIS LOVELL MD ([email or web address]) on 04/30/25 at 18:37. Electronically submitted by Willis Hernandez ([facility]). I personally scribed for GRIS LOVELL MD ([email or web address]) on 04/30/25 at 19:16. Electronically submitted by Willis Hernandez ([facility]). GRIS LOVELL MD Apr 30, 2025 18:37
[2025-04-30 18:58] LABS: Alanine Aminotransferase 16 U/L (7-40); Albumin 4.5 g/dL (3.2-4.8); Alkaline Phosphatase 91 U/L (46-116); Anion Gap 10 (5-15); BUN/Creatinine Ratio 7.3 (10.0-20.0); Bilirubin, Total 1.2 mg/dL (0.2-1.0); Blood Urea Nitrogen 13 mg/dL (9-23); Calcium 9.7 mg/dL (8.7-10.4); Carbon Dioxide 27 mmol/L (20-31); Chloride 103 mmol/L (98-107); Glucose 90 mg/dL (74-106); Sodium 140 mmol/L (136-145); Total Protein 7.8 g/dL (5.7-8.2)
[2025-04-30 19:00] LABS: Potassium 3.4 mmol/L (3.5-5.1)
--- NOTE | 2025-04-30 19:03 | DVH ---
CHEST RADIOGRAPH Indication: chest pain Technique: Single frontal view of the chest was obtained Comparison: XY CHEST XRAY 1 VIEW on DOS: 01/09/25, XY CHEST PORTABLE on DOS: 09/02/24, XY CHEST XRAY 1 VIEW on DOS: 08/04/23 FINDINGS: Lines and Tubes: None Lungs: No focal consolidation. Zipperpull is noted overlying the midline mediastinum which is most likely external to the patient. Pleura: No effusion. No pneumothorax. Cardiomediastinal contours: Unremarkable Bones: No acute osseous abnormality. A rojas is Noted overlying the left supraclavicular region. IMPRESSION: No acute cardiopulmonary disease.
--- NOTE | 2025-04-30 19:11 | ECG ---
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
[2025-04-30] MEDS ORDERED: HYDR25TA88 PO (20:40)
[2025-04-30] MEDS: POTASSIUM CHL 20 Meq TABLET PO ONE (21:29)
[2025-04-30 21:35] VITALS: BP 142/115; PULSE 87; RESP 18; TEMP 99; O2SAT 96
== END 2025-04-30 22:20 | disposition home or self-care (01) ==
LOC: ER 17:43
DX: N28.9 Disorder of kidney and ureter, unspecified (principal); I11.0 Hypertensive heart disease with heart failure; I50.9 Heart failure, unspecified; F17.210 Nicotine dependence, cigarettes, uncomplicated; Z79.84 Long term (current) use of oral hypoglycemic drugs; Z79.899 Other long term (current) drug therapy; Z87.11 Personal history of peptic ulcer disease; Z90.49 Acquired absence of other specified parts of digestive tract; Z88.8 Allergy status to other drugs, medicaments and biological substances
CPT/HCPCS: 36415; 71045; 80053; 83880; 84484; 85025; 93005